=== PATIENT | female | born 1985 | race Caucasian/White ===

== ENCOUNTER 2017-11-02 21:32 | Observation (INO) | payer BC ==
[2017-11-02] MEDS ORDERED: FENTANYL CITR 100 MCG/2 ML ONE (22:20)
[2017-11-02] MEDS ORDERED: ONDANSETRON 4 MG/2 ML VIAL ONE (22:20)
[2017-11-02 22:30] LABS: Absolute Lymphocytes (CBC) 3.2 K/uL (0.7-4.9); Absolute Monocytes 0.6 K/uL (0.1-1.3); Absolute Neutrophil 7.1 K/uL (1.8-8.0); Basophils % 0.8 % (0-1.3); Hematocrit 41.5 % (36.0-45.0); Lymphocytes % 28.9 % (15.3-44.8); MPV 9.3 fL (7.6-11.3); Monocytes % 5.8 % (3.3-12.3); RBC Red Blood Cell Count 4.51 M/uL (3.86-4.86)
[2017-11-02 22:53] LABS: ALT/SGPT 33 U/L (12-78); AST/SGOT 24 U/L (15-37); Albumin 2.9 g/dL (3.4-5.0); Alkaline Phosphatase 123 U/L (45-117); BUN Blood Urea Nitrogen 9 mg/dL (7-18); Bicarbonate 27 mmol/L (21-32); Bilirubin Direct < 0.1 mg/dL (0-0.2); Bilirubin Total 0.3 mg/dL (0.2-1.0); Glucose Level 87 mg/dL (74-106); Lipase 83 U/L (73-393); Potassium 3.9 mmol/L (3.5-5.1); Protein, Total 8.3 g/dL (6.4-8.2); Sodium Level 141 mmol/L (136-145)
[2017-11-02 23:25] LABS: Urine Blood 1+ (NEG); Urine Glucose NEGATIVE (NEG); Urine Protein NEGATIVE (NEG); Urine Specific Gravity 1.015 (1.005-1.030)
[2017-11-02 23:30] LABS: Urine Bacteria <20 /HPF (<20); Urine Culture Reflex Order NOT NEEDED; Urine RBC <5 /HPF (NONE SEEN)
[2017-11-02] MEDS ORDERED: PROMETHAZINE 25 MG/ML VIAL ONE (23:43)
[2017-11-02] MEDS ORDERED: MEPERIDINE HCL 25 MG/0.5 ML ONE (23:43)
--- NOTE | 2017-11-03 00:06 | EDPHYS ---
Physician Documentation [facility] Name: Sosa Kraus Age: 32 yrs Sex: Female : 1985 Arrival Date: 11/02/2017 Time: 21:35 Bed 23 Private MD: ED Physician Ronaldo Jordan HPI: 11/02 22:58 This 32 yrs old Female presents to ER via Ambulatory with complaints of jr8 Abdominal Pain. 22:58 The patient presents with abdominal pain right lower quadrant. Onset: The jr8 symptoms/episode began/occurred acutely, today. The symptoms do not radiate. Associated signs and symptoms: Pertinent positives: nausea and vomiting. The symptoms are described as sharp, stabbing. Severity of pain: At its worst the pain was moderate in the emergency department the pain is unchanged. The patient has not experienced similar symptoms in the past. The patient has not recently seen a physician. 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 - Social history:: Smoking status: Patient/guardian denies using tobacco. - Ebola Screening: : Patient denies travel to an Ebola-affected area in the 21 days before illness onset. ROS: 22:58 Eyes: Negative for injury, pain, redness, and discharge, ENT: Negative for injury, jr8 pain, and discharge, Neck: Negative for injury, pain, and swelling, Cardiovascular: Negative for chest pain, palpitations, and edema, Respiratory: Negative for shortness of breath, cough, wheezing, and pleuritic chest pain, MS/Extremity: Negative for injury and deformity, Skin: Negative for injury, rash, and discoloration, Neuro: Negative for headache, weakness, numbness, tingling, and seizure. 22:58 Abdomen/GI: Positive for abdominal pain, nausea and vomiting, Negative for diarrhea, constipation, abdominal cramps, abdominal distension, anorexia, dysphagia, hematemesis, black/tarry stool, rectal pain, rectal bleeding, bowel incontinence, flatulence. 22:58 Back: Positive for flank pain, on the right. Exam: 22:58 Eyes: Pupils equal round and reactive to light, extra-ocular motions intact. Lids and jr8 lashes normal. Conjunctiva and sclera are non-icteric and not injected. Cornea within normal limits. Periorbital areas with no swelling, redness, or edema. ENT: Nares patent. No nasal discharge, no septal abnormalities noted. Tympanic membranes are normal and external auditory canals are clear. Oropharynx with no redness, swelling, or masses, exudates, or evidence of obstruction, uvula midline. Mucous membranes moist. Neck: Trachea midline, no thyromegaly or masses palpated, and no cervical lymphadenopathy. Supple, full range of motion without nuchal rigidity, or vertebral point tenderness. No Meningismus. Cardiovascular: Regular rate and rhythm with a normal S1 and S2. No gallops, murmurs, or rubs. Normal PMI, no JVD. No pulse deficits. Respiratory: Lungs have equal breath sounds bilaterally, clear to auscultation and percussion. No rales, rhonchi or wheezes noted. No increased work of breathing, no retractions or nasal flaring. Skin: Warm, dry with normal turgor. Normal color with no rashes, no lesions, and no evidence of cellulitis. MS/ Extremity: Pulses equal, no cyanosis. Neurovascular intact. Full, normal range of motion. Neuro: Awake and alert, GCS 15, oriented to person, place, time, and situation. Cranial nerves II-XII grossly intact. Motor strength 5/5 in all extremities. Sensory grossly intact. Cerebellar exam normal. Normal gait. 22:58 Abdomen/GI: Inspection: obese Bowel sounds: active, all quadrants, Palpation: soft, in all quadrants, moderate abdominal tenderness, in the anterior aspect of right lateral abdomen and right lower quadrant, Indicators: McBurney's point is not tender, Bee's sign is negative, Rovsing's sign is negative, Liver: no appreciated palpable abnormalities, Hernia: not appreciated. 22:58 Back: pain, that is moderate, of the right flank, ROM is normal, normal spinal alignment noted, CVA tenderness, that is mild, is noted on the right. Vital Signs: 21:49 BP 116 / 83; Pulse 95; Resp 20; Temp 97.8(TE); Pulse Ox 98% ; Weight 113.4 kg (R); aj1 Height 5 ft. 6 in. (167.64 cm) (R); Pain 10/10; 23:38 BP 110 / 70; Pulse 79; Resp 17; Pulse Ox 98% on R/A; kr2 11/03 00:50 BP 117 / 74; Pulse 74; Resp 17; Pulse Ox 98% on R/A; kr2 11/02 21:49 Body Mass Index 40.35 (113.40 kg, 167.64 cm) aj1 MDM: 11/02 21:59 Patient medically screened. [facility] 11/03 00:04 Data reviewed: vital signs, nurses notes, lab test result(s), radiologic studies, CT jr8 scan, and as a result, I will admit patient. Data interpreted: Pulse oximetry: on room air is 98 %. Interpretation: normal. Counseling: I had a detailed discussion with the patient and/or guardian regarding: the historical points, exam findings, and any diagnostic results supporting the discharge/admit diagnosis, lab results, radiology results, the need for further work-up and treatment in the hospital. 11/02 21:59 Order name: Basic Metabolic Panel 11/02 21:59 Order name: CBC with Diff [facility] 11/02 21:59 Order name: Creatinine for Radiology; Complete Time: 22:57 [facility] 11/02 21:59 Order name: Hepatic Function; Complete Time: 22:57 [facility] 11/02 21:59 Order name: Lipase; Complete Time: 22:57 [facility] 11/02 22:00 Order name: Basic Metabolic Panel; Complete Time: 22:57 [facility] 11/02 22:00 Order name: CBC with Automated Diff; Complete Time: 22:41 [facility] 11/02 22:26 Order name: Urine Dipstick--Ancillary (enter results); Complete Time: 23:30 [facility] 11/02 22:26 Order name: Urine --Ancillary (enter results); Complete Time: 23:30 [facility] 11/02 22:42 Order name: Urine Microscopic Only; Complete Time: 23:32 [facility] 11/02 22:42 Order name: CT Stone Protocol [facility] 11/02 21:59 Order name: Urine Test (obtain specimen); Complete Time: 22:26 [facility] 11/02 21:59 Order name: IV Saline Lock; Complete Time: 22:13 11/02 21:59 Order name: Labs collected and sent; Complete Time: 22:13 11/02 21:59 Order name: Urine Dipstick-Ancillary (obtain specimen); Complete Time: 22:26 11/03 00:06 Order name: NPO; Complete Time: 00:11 Administered Medications: 11/02 22:25 Drug: fentaNYL (PF) 75 mcg Route: IVP; Site: right upper arm; kr2 22:40 Follow up: Response: No adverse reaction; Pain is decreased kr2 22:25 Drug: Zofran 4 mg Route: IVP; Site: right upper arm; kr2 22:40 Follow up: Response: No adverse reaction kr2 11/03 00:05 Drug: Phenergan 12.5 mg Route: IVP; Site: right upper arm; kr2 00:15 Follow up: Response: No adverse reaction kr2 00:05 Drug: Demerol 25 mg Route: IVP; Site: right upper arm; kr2 00:14 Follow up: Response: No adverse reaction; Pain is decreased kr2 00:11 Drug: Mefoxin 1 grams Route: IVPB; Infused Over: 30 mins; Site: right upper arm; kr2 00:54 Follow up: Response: No adverse reaction; IV Status: Completed infusion kr2 00:16 Drug: Flagyl 500 mg Volume: 100 ml; Route: IVPB; Rate: 200 ml/hr; Infused Over: 30 kr2 mins; Site: right upper arm; 00:54 Follow up: Response: No adverse reaction; IV Status: Completed infusion kr2 Disposition: 09:31 Co-signature as Attending Physician, Ronaldo Jordan MD I agree with the assessment and [facility] plan of care. Disposition: 11/03/17 00:05 Hospitalization ordered by Johny Thurston for Inpatient Admission. Preliminary diagnosis is Acute appendicitis with localized peritonitis. - Bed requested for Telemetry/MedSurg (Inpatient). - Status is Inpatient Admission. kr2 - Condition is Stable. - Problem is new. - Symptoms have improved. UTI on Admission? No Signatures: Dispatcher [employer] EDMS Uma León RN RN aj1 Ronaldo Jordan MD MD cha Roszak, Josh, PA PA jr8 Jojo Ward RN RN Roxana Breen RN RN kr2 Corrections: (The following items were deleted from the chart) 00:09 00:05 Hospitalization Ordered by Johny Thurston MD for Inpatient Admission. Preliminary cg diagnosis is Acute appendicitis with localized peritonitis. Bed requested for Telemetry/MedSurg (Inpatient). Status is Inpatient Admission. Condition is Stable. Problem is new. Symptoms have improved. UTI on Admission? No. jr8 00:55 00:09 11/03/2017 00:05 Hospitalization Ordered by Johny Thurston MD for Inpatient kr2 Admission. Preliminary diagnosis is Acute appendicitis with localized peritonitis. Bed requested for Telemetry/MedSurg (Inpatient). Status is Inpatient Admission. Condition is Stable. Problem is new. Symptoms have improved. UTI on Admission? No. cg
--- NOTE | 2017-11-03 00:06 | ER ---
Nurse's Notes [facility] Name: Sosa Kraus Age: 32 yrs Sex: Female : 1985 Arrival Date: 11/02/2017 Time: 21:35 Bed 23 Private MD: Diagnosis: Acute appendicitis with localized peritonitis Presentation: 11/02 21:46 Presenting complaint: Patient states: abdominal pain to the umbilical area that aj1 radiates to the right lower quadrant since 0400 this morning. Patient also report chills, nausea. Denies vomiting, diarrhea. Transition of care: patient was not received from another setting of care. Onset of symptoms was November 02, 2017 at 04:00. Risk Assessment: Do you want to hurt yourself or someone else? Patient reports no desire to harm self or others. Initial Sepsis Screen: Does the patient meet any 2 criteria? Systolic BP < 90 mmHg. No. Patient's initial sepsis screen is negative. Does the patient have a suspected source of infection? Yes: Acute abdominal pain. Care prior to arrival: None. 21:46 Method Of Arrival: Ambulatory aj1 21:46 Acuity: DOMINGO 3 aj1 Triage Assessment: 21:49 General: Appears in no apparent distress. uncomfortable, Behavior is calm, cooperative, aj1 appropriate for age. Pain: Complains of pain in umbilical area Pain radiates to right lower quadrant Pain currently is 10 out of 10 on a pain scale. Quality of pain is described as sharp, shooting, Pain began 0400. Neuro: Level of Consciousness is awake, alert, obeys commands, Speech is normal. Cardiovascular: Patient's skin is warm and dry. Respiratory: Airway is patent Respiratory effort is even, unlabored, Respiratory pattern is regular, symmetrical. GI: Abdomen is non-distended, Reports upper abdominal pain, nausea, Patient currently denies diarrhea, vomiting. 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 - Social history:: Smoking status: Patient/guardian denies using tobacco. - Ebola Screening: : Patient denies travel to an Ebola-affected area in the 21 days before illness onset. Screenin:01 Abuse screen: Denies threats or abuse. Denies injuries from another. Nutritional kr2 screening: No deficits noted. Tuberculosis screening: No symptoms or risk factors identified. Fall Risk None identified. Assessment: 21:58 General: Appears in no apparent distress. uncomfortable, obese, well groomed, well kr2 developed, Behavior is calm, cooperative, appropriate for age. Pain: Complains of pain in umbilical area Pain radiates to right lower quadrant Pain currently is 10 out of 10 on a pain scale. Quality of pain is described as sharp, shooting, stabbing, squeezing, Is continuous, Alleviated by rest, repositioning, Aggravated by increased activity, laying down. Neuro: Level of Consciousness is awake, alert, obeys commands, Oriented to person, place, time, situation, Appropriate for age. Cardiovascular: Capillary refill < 3 seconds in bilateral fingers Patient's skin is warm and dry. Respiratory: Airway is patent Respiratory effort is even, unlabored, Respiratory pattern is regular, symmetrical. GI: Bowel sounds present X 4 quads. Abd is soft X 4 quads Abdomen is tender to palpation in umbilical area and right lower quadrant Guarding noted in right lower quadrant Reports nausea. : Denies burning with urination. EENT: Oral mucosa is moist. Derm: Skin is intact, is healthy with good turgor, Skin is pink, warm \T\ dry. Musculoskeletal: Circulation, motion, and sensation intact. 23:37 Reassessment: Patient appears in no apparent distress at this time. Patient and/or kr2 family updated on plan of care and expected duration. Pain level reassessed. Patient is alert, oriented x 3, equal unlabored respirations, skin warm/dry/pink. Patient states feeling better. Patient states symptoms have improved. 23:48 Reassessment: Patient appears in no apparent distress at this time. Patient and/or kr2 family updated on plan of care and expected duration. Pain level reassessed. Patient is alert, oriented x 3, equal unlabored respirations, skin warm/dry/pink. Patient reports pain is starting to return. Isabella notified. Medicated patient as ordered, see JUN. Vital Signs: 21:49 BP 116 / 83; Pulse 95; Resp 20; Temp 97.8(TE); Pulse Ox 98% ; Weight 113.4 kg (R); aj1 Height 5 ft. 6 in. (167.64 cm) (R); Pain 10/10; 23:38 BP 110 / 70; Pulse 79; Resp 17; Pulse Ox 98% on R/A; kr2 07 00:50 BP 117 / 74; Pulse 74; Resp 17; Pulse Ox 98% on R/A; kr2 11/02 21:49 Body Mass Index 40.35 (113.40 kg, 167.64 cm) aj1 ED Course: 11/02 21:35 Patient arrived in ED. al2 21:49 Triage completed. aj1 21:49 Arm band placed on Patient placed in an exam room. aj1 21:53 Roxana Breen, SULMA is Primary Nurse. kr2 21:59 Carlin Kitchen PA is PHCP. jr8 21:59 Ronaldo Jordan MD is Attending Physician. jr8 22:01 Patient has correct armband on for positive identification. Bed in low position. Call kr2 light in reach. Side rails up X 1. Adult w/ patient. Pulse ox on. NIBP on. Door closed. Verbal reassurance given. Head of bed elevated. 22:10 Initial lab(s) drawn, by me, sent to lab. Inserted saline lock: 22 gauge in right upper kr2 arm, using aseptic technique. 22:15 Urine collected: clean catch specimen, clear. kr2 23:10 CT completed. Patient tolerated procedure well. Patient moved back from CT. bq 23:12 CT Stone Protocol In Process Unspecified. EDMS 11/03 00:04 Johny Thurston MD is Hospitalizing Provider. jr8 00:41 No provider procedures requiring assistance completed. Patient admitted, IV remains in kr2 place. Administered Medications: 11/02 22:25 Drug: fentaNYL (PF) 75 mcg Route: IVP; Site: right upper arm; kr2 22:40 Follow up: Response: No adverse reaction; Pain is decreased kr2 22:25 Drug: Zofran 4 mg Route: IVP; Site: right upper arm; kr2 22:40 Follow up: Response: No adverse reaction kr2 11/03 00:05 Drug: Phenergan 12.5 mg Route: IVP; Site: right upper arm; kr2 00:15 Follow up: Response: No adverse reaction kr2 00:05 Drug: Demerol 25 mg Route: IVP; Site: right upper arm; kr2 00:14 Follow up: Response: No adverse reaction; Pain is decreased kr2 00:11 Drug: Mefoxin 1 grams Route: IVPB; Infused Over: 30 mins; Site: right upper arm; kr2 00:54 Follow up: Response: No adverse reaction; IV Status: Completed infusion kr2 00:16 Drug: Flagyl 500 mg Volume: 100 ml; Route: IVPB; Rate: 200 ml/hr; Infused Over: 30 kr2 mins; Site: right upper arm; 00:54 Follow up: Response: No adverse reaction; IV Status: Completed infusion kr2 Outcome: 00:05 Decision to Hospitalize by Provider. jr8 00:41 Admitted to Med/surg accompanied by nurse, family with patient, via wheelchair, room kr2 208, with chart, Report called to [place] 00:41 Condition: stable 00:41 Instructed on the need for admit, Demonstrated understanding of instructions. 00:55 Patient left the ED. kr2 Signatures: Dispatcher [employer] EDUma Whiteside, RN RN aj1 Alyse Sutton Josh, PA PA jr8 Roxana Breen RN RN kr2 Tiffany Goff
[2017-11-03] MEDS ORDERED: CEFOXITIN/SWI 1gm 1 GM/10 ML SYR ONE (00:07)
[2017-11-03] MEDS ORDERED: METRONIDAZOLE 500mg IVPB 500 MG/100 ML BAG IV ONE (00:15)
[2017-11-03] MEDS ORDERED: PROMETHAZINE 25 MG/ML VIAL IV PRN (00:50)
[2017-11-03] MEDS ORDERED: MEPERIDINE HCL 50 MG/ML AMP IV PRN (00:50)
[2017-11-03] MEDS ORDERED: ONDANSETRON 4 MG/2 ML VIAL IV PRN (00:50)
[2017-11-03 01:06] VITALS: BMI 42.7
[2017-11-03] MEDS: D5 0.45 NS 1,000 ML IV SCH ×5 (01:09→23:46)
--- NOTE | 2017-11-03 07:53 | RAD REPORT ---
EXAM DESCRIPTION: CT - Stone Protocol - 11/03/2017 2:50 am CLINICAL HISTORY: Abdominal pain. Right lower quadrant pain since this morning. Nausea COMPARISON: None. TECHNIQUE: Computed axial tomography of the abdomen pelvis was obtained without oral or IV contrast. Lack of IV and oral contrast limits evaluation of solid organs, bowel, and vessels. Coronal reformat rolo images were obtained and reviewed. A preliminary report was generated by [facility] and reviewed prior to this dictation All CT scans are performed using dose optimization technique as appropriate and may include automated exposure control or mA/KV adjustment according to patient size. FINDINGS: A right renal calculus is not seen. A 1 millimeter left renal calculus is present. Hydrone phrosis is not noted. An ureteral calculus is not noted. A bladder calculus is not present. Gallstones are present. The gallbladder wall is not thickened. Liver has a diminished attenuation consistent with fatty infiltration Spleen, pancreas and adrenals appear grossly normal. A tiny umbilical hernia is seen There is no evidence of diverticulitis. The appendix is dilated with moderate stranding within the ad jacent fat. Extends superiorly from the cecum. An abscess is not noted. Free air is not visualized. IMPRESSION: Appendicitis Cholelithiasis without evidence cholecystitis Tiny nonobstructing left renal calculus
[2017-11-03] MEDS ORDERED: Ringers Lactate 1,000 ML IV ONE (10:40)
[2017-11-03] MEDS ORDERED: GLYCOPYRROLATE 0.2 MG/ML SYR ONE ×2 (12:16→12:17)
[2017-11-03] MEDS ORDERED: PROPOFOL 200 MG/20 ML VIAL IV ONE (12:16)
[2017-11-03] MEDS ORDERED: MIDAZOLAM HCL 2 MG/2 ML INJ ONE ×2 (12:16→14:14)
[2017-11-03] MEDS ORDERED: LIDOCAINE 2% MPF 5 ML VIAL ONE (12:17)
[2017-11-03] MEDS ORDERED: ROCURONIUM 50 MG/5 ML VIAL IV ONE (12:19)
[2017-11-03] MEDS ORDERED: ONDANSETRON 4 MG/2 ML VIAL ONE (12:19)
[2017-11-03] MEDS ORDERED: FENTANYL CITR 250 MCG/5 ML ONE (12:20)
[2017-11-03] MEDS ORDERED: ONDANSETRON HCL 40 MG/20 ML VIAL ONE (12:21)
[2017-11-03] MEDS ORDERED: NEOSTIGMINE 1 MG/ML -5 ML SYRINGE ONE (12:21)
--- NOTE | 2017-11-03 12:59 | P.HP ---
Date of Service: 11/03/17 PC: This 32-year-old female presents emergency room with severe right lower quadrant abdominal pain for diagnosis and treatment. HPC: Patient has been experiencing abdominal pain since yesterday. Action began our left side, then was all across her abdomen, but is now localized to the right lower quadrant. Hurts whenever she tries to move, or coughs PMH: Negative PSHx: Previous C-sections SOC: Allergic to amoxicillin SYS REVIEW: No cough, wheeze, shortness of breath. No chest pain or palpitations. No urinary complaints O/E awake alert stable HEENT: Not jaundiced Chest: Chest movement equal bilaterally ABD: Tender with guarding in the right lower quadrant with guarding LOCO: Intact DATA: Elevated white cell count, CT scan demonstrates findings consistent with physical exam of acute abdomen with appendicitis IMPRESSION: Acute abdomen with appendicitis PLAN: I will take her to the operating room for laparoscopic possible open appendectomy. The risks of this procedure have been discussed. The possibility of bleeding, infection, injury to bowel blood vessels and surrounding structures were explained. Abscess formation and need for further surgeries and procedures was described. She understands and wants to proceed.
--- NOTE | 2017-11-03 13:01 | P.PN ---
Date of Service: 11/03/17 S: Patient is awake alert up ambulating, good effort on incentive spirometry. States he feels much better than yesterday but still very sore. O: Vital signs remain stable A: Patient doing well status post laparoscopic appendectomy. Will keep for 1 more day of IV antibiotics. P: Anticipate discharge in a.m..
--- NOTE | 2017-11-03 14:21 | P.OP ---
Preoperative diagnosis: Acute abdomen with appendicitis Postoperative diagnosis: Acute appendicitis Primary procedure: Laparoscopic appendectomy Anesthesia: General Estimated blood loss: Less than 10 cc Specimen: Appendix and Operative Technique: The patient was brought to the operating room, placed supine on the table. After the induction of adequate general endotracheal anesthesia, the area of the abdomen was prepped with a DuraPrep solution, and she was draped in the usual aseptic manner. A subumbilical incision was made. This was brought down through the skin and subcutaneous tissue. The Visiport was cavity and created pneumoperitoneum to approximately 12 mm of mercury. Under direct vision a 5 mm trocar was placed in the lower midline and another 5 mm in the right upper quadrant. The patient was then positioned in Trendelenburg and rolled to the left side. We were able to visualize right lower quadrant. . The appendix was then gently dissected from the surrounding structures. The junction of the appendix with the with the cecum was identified. An opening was made in the mesentery of the appendix. The 10 mm trocar was now converted to a 12 with the camera moved to the right upper port with a 5 mm view. The linear Stapler was introduced into the peritoneal cavity. It was placed across the base of the appendix and fired. A vascular reload was then placed into the Stapler. The mesentery of the appendix was then taken down. The appendix having been was placed into an Endo-Catch, brought out through the umbilical port site. Attention was turned back towards the right lower quadrant. The area was gently irrigated with the saline solution. The effluent was aspirated. 0.25% Marcaine was aerosolize into the right lower quadrant. Attention was turned towards the umbilical trocar. Using the endo-close absorbable sutures were placed to close the defect. The patient was now returned to the neutral position on the OR table. The pneumoperitoneum was collapsed, the umbilical sutures tied, and jarocho applied to the skin. At the end of the procedure the patient was in stable condition and sent to the recovery room. Needle sponge and instrument count were correct. 1 specimen was sent for histopathology. Sterile dressings had been applied. Complications: None Transferred to: Recovery Room Condition: Good
[2017-11-03] MEDS ORDERED: MORPHINE 4 MG/ML SYR IV PRN (14:28)
[2017-11-03] MEDS: MEPERIDINE HCL 50 MG/ML AMP ONE ×3 (14:35→14:46)
[2017-11-03] MEDS ORDERED: Levofloxacin500mg IV 500 MG/100 ML BAG IV SCH (15:00)
[2017-11-03] MEDS: HYDROCODONE/APAP 7.5/325 MG TAB PO PRN ×2 (17:25→21:57)
[2017-11-04] MEDS: HYDROCODONE/APAP 7.5/325 MG TAB PO PRN ×2 (06:20→10:19)
[2017-11-04] MEDS: D5 0.45 NS 1,000 ML IV SCH (09:00)
[2017-11-04 10:07] VITALS: O2SAT 92
[2017-11-04 12:07] VITALS: BP 134/82; TEMP 98.4
== END 2017-11-04 12:14 | disposition home or self-care (01) ==
LOC: ER 21:32 → ERHOLD 11-03 00:18 → INTOOBSV 11-03 00:18 → 2ND 11-03 00:28
PROVIDERS: ADMIT Surgery; ATTEND Surgery
PROC: 0DTJ4ZZ Resection of Appendix, Percutaneous Endoscopic Approach (ICD-10-PCS; principal; 2017-11-03 13:45)
DX: K35.80 Unspecified acute appendicitis (principal); Z88.0 Allergy status to penicillin
CPT/HCPCS: 36415; 74176; 76377; 80048; 80076; 81003; 81015; 81025; 83690; 85025; 88304; 96365; 96368; 96375; 99285; G0378; J2175; J2250; J2405; J2550; J2710; J3010

== ENCOUNTER 2017-11-18 14:20 | Emergency (ER) | payer BC ==
[2017-11-18 16:23] LABS: Absolute Lymphocytes (CBC) 1.8 K/uL (0.7-4.9); Absolute Monocytes 0.7 K/uL (0.1-1.3); Basophils % 0.7 % (0-1.3); Eosinophils % 0.4 % (0-4.4); Hematocrit 41.9 % (36.0-45.0); MCH 30.9 pg (27.0-35.0); MCV 92.6 fL (80-100); MPV 9.1 fL (7.6-11.3); Monocytes % 5.1 % (3.3-12.3); RBC Red Blood Cell Count 4.52 M/uL (3.86-4.86)
[2017-11-18] MEDS ORDERED: LORazepam 2 MG/ML VIAL ONE ×2 (16:26→17:17)
[2017-11-18] MEDS ORDERED: KETOROLAC 30 MG/ML INJ ONE (16:27)
[2017-11-18] MEDS ORDERED: FENTANYL CITR 100 MCG/2 ML ONE (16:27)
[2017-11-18] MEDS ORDERED: NA CHLORIDE 0.9% 1,000 ML ONE (16:27)
[2017-11-18 16:43] LABS: ALT/SGPT 60 U/L (12-78); AST/SGOT 56 U/L (15-37); Albumin 3.2 g/dL (3.4-5.0); Alkaline Phosphatase 124 U/L (45-117); BUN Blood Urea Nitrogen 11 mg/dL (7-18); Bicarbonate 30 mmol/L (21-32); Bilirubin Total 0.3 mg/dL (0.2-1.0); Glucose Level 96 mg/dL (74-106); Potassium 3.8 mmol/L (3.5-5.1); Protein, Total 8.5 g/dL (6.4-8.2); Sodium Level 141 mmol/L (136-145)
[2017-11-18] MEDS ORDERED: ONDANSETRON 4 MG/2 ML VIAL ONE (16:57)
[2017-11-18 17:27] LABS: Urine Blood TRACE (NEG); Urine Glucose NEGATIVE (NEG); Urine Protein NEGATIVE (NEG); Urine Specific Gravity 1.015 (1.005-1.030)
--- NOTE | 2017-11-18 17:31 | RAD REPORT ---
EXAM DESCRIPTION: CT - Angio Aorta For Dissection - 11/18/2017 5:11 pm CLINICAL HISTORY: . Chest pain/abdominal pain which started today are COMPARISON: November 02, 2017 CT abdomen TECHNIQUE: Computed tomography angiography of the chest, abdomen pelvis were obtained. 100 cc Isovue 370 was administered intravenously. Coronal and sagittal reconstruction were performed. MIP 3D reconstruction was performed All CT scans are performed using dose optimization technique as appropriate and may include automated exposure control or mA/KV adjustment according to patient size. FINDINGS: The opacification of portions of the thoracic aorta are suboptimal. A gross dissection is not seen. A dissection involving the abdominal aorta is not visualized. An aortic aneurysm is not pre sent. The celiac, SMA and DAILY are patent . A lung consolidation is not present. A pericardial effusion is not seen. A pleural effusion is not n oted. Fatty infiltration liver is present. Gallstones are seen without gallbladder wall thickening. A tiny umbilical hernia is present. Spleen, pancreas adrenals kidneys demonstrate no significant abnormality. The appendix has been removed. There no evidence diverticulitis. No ascites is noted. A 3.3 centimeter left ovarian cyst is suspected without significant free-fluid Spondylosis involves L4-5. There appears to be mild central spinal stenosis IMPRESSION: No gross thoracic aortic dissection. Negative for an abdominal aortic dissection Cholelithiasis without cholecystitis 3.3 centimeter left ovarian cyst without significant free fluid
--- NOTE | 2017-11-18 18:00 | ER ---
Nurse's Notes [facility] Name: Sosa Kraus Age: 32 yrs Sex: Female : 1985 Arrival Date: 11/18/2017 Time: 14:23 Bed 18 Private MD: Cliff Garcia F Diagnosis: Pain in thoracic spine;Other ovarian cysts;Spondylolysis, lumbar region Presentation: 11/18 14:30 Presenting complaint: Patient states: Mid back pain that started this afternoon. aj Transition of care: patient was not received from another setting of care. Onset of symptoms was November 18, 2017. Risk Assessment: Do you want to hurt yourself or someone else? Patient reports no desire to harm self or others. Initial Sepsis Screen: Does the patient meet any 2 criteria? No. Patient's initial sepsis screen is negative. Does the patient have a suspected source of infection? No. Patient's initial sepsis screen is negative. Care prior to arrival: None. 14:30 Method Of Arrival: Ambulatory aj 14:30 Acuity: DOMINGO 4 aj Triage Assessment: 14:31 General: Appears in no apparent distress. comfortable, Behavior is calm, cooperative, aj appropriate for age. Pain: Complains of pain in left subscapular area and right subscapular area. Neuro: Level of Consciousness is awake, alert, obeys commands, Oriented to person, place, time, situation, Appropriate for age. Respiratory: Airway is patent Respiratory effort is even, unlabored, Respiratory pattern is regular, symmetrical. Derm: Skin is intact, is healthy with good turgor, Skin is pink, warm \T\ dry. normal. Musculoskeletal: Circulation, motion, and sensation intact. Reports pain in back. 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 - Social history:: Smoking status: Patient/guardian denies using tobacco. - Ebola Screening: : Patient negative for fever greater than or equal to 101.5 degrees Fahrenheit, and additional compatible Ebola Virus Disease symptoms Patient denies exposure to infectious person Patient denies travel to an Ebola-affected area in the 21 days before illness onset No symptoms or risks identified at this time. - Family history:: not pertinent. Screenin:43 Abuse screen: Denies threats or abuse. Nutritional screening: No deficits noted. mb3 Tuberculosis screening: No symptoms or risk factors identified. Fall Risk None identified. Assessment: 16:39 General: Appears in no apparent distress. comfortable, Behavior is calm, cooperative, mb3 appropriate for age. Pain: Complains of pain in lumbar area Pain radiates to abdomen. Neuro: No deficits noted. Neuro: Level of Consciousness is awake, alert, obeys commands, Oriented to person, place, time, situation, Appropriate for age. Cardiovascular: No deficits noted. Heart tones present Capillary refill < 3 seconds Patient's skin is warm and dry. Pulses are all present. Respiratory: No deficits noted. Airway is patent Respiratory effort is even, unlabored, Respiratory pattern is regular, symmetrical, Breath sounds are clear bilaterally. GI: No deficits noted. Abdomen is obese, Bowel sounds present X 4 quads. GI: Abd is soft and non tender. : No signs and/or symptoms were reported regarding the genitourinary system. EENT: No deficits noted. No signs and/or symptoms were reported regarding the EENT system. Derm: No deficits noted. No signs and/or symptoms reported regarding the dermatologic system. 17:41 Reassessment: Patient and/or family updated on plan of care and expected duration. Pain mb3 level reassessed. Patient is alert, oriented x 3, equal unlabored respirations, skin warm/dry/pink. Patient states feeling better. Patient states symptoms have improved. Vital Signs: 14:31 BP 140 / 79; Pulse 77; Resp 16; Temp 97.5; Pulse Ox 98% on R/A; Weight 117.93 kg; aj Height 5 ft. 6 in. (167.64 cm); 16:43 BP 121 / 74; Pulse 77; Resp 16; Pulse Ox 98% on R/A; mb3 17:40 BP 125 / 76; Pulse 83; Resp 16; Pulse Ox 95% on R/A; mb3 14:31 Body Mass Index 41.96 (117.93 kg, 167.64 cm) aj ED Course: 14:23 Patient arrived in ED. mr 14:23 Cliff Garcia MD is Private Physician. mr 14:31 Triage completed. aj 14:31 Arm band placed on right wrist. Patient placed in an exam room. aj 14:39 Chucho Rowe, SULMA is Primary Nurse. mb3 14:53 Ronaldo Jordan MD is Attending Physician. dwayne 16:04 Radiology exam delayed due to lab results not completed at this time. (BUN/Creatinine) test not completed at this time. 16:30 Inserted saline lock: 20 gauge in left antecubital area, using aseptic technique. Blood mb3 collected. Missed attempt(s): 22 gauge in right antecubital area. Bleeding controlled, band aid applied, catheter tip intact. 16:38 Patient has correct armband on for positive identification. Placed in gown. Bed in low mb3 position. Call light in reach. Pulse ox on. NIBP on. 16:[address] 17:11 CT completed. Patient tolerated procedure well. Patient moved back from CT. ms 17:11 CT Aorta for Dissection In Process Unspecified. EDMS 17:58 Cliff Garcia MD is Referral Physician. dwayne 18:31 No provider procedures requiring assistance completed. IV discontinued, intact, mb3 bleeding controlled, No redness/swelling at site. Pressure dressing applied. Administered Medications: 16:35 Drug: Ativan 1 mg Route: IVP; Site: left antecubital; mb3 18:12 Follow up: Response: No adverse reaction mb3 16:35 Drug: NS 0.9% 1000 ml Route: IV; Rate: 1 bolus; Site: left antecubital; mb3 18:24 Follow up: Response: No adverse reaction; IV Status: Completed infusion; IV Intake: mb3 1000ml 16:36 Drug: TORadol 30 mg Route: IVP; Site: left antecubital; mb3 18:11 Follow up: Response: No adverse reaction mb3 16:36 Drug: fentaNYL (PF) 25 mcg Route: IVP; Site: left antecubital; mb3 18:11 Follow up: Response: No adverse reaction mb3 16:57 Drug: Zofran 4 mg Route: IVP; Site: left antecubital; mb3 18:11 Follow up: Response: No adverse reaction mb3 16:57 Drug: Ativan 1 mg Route: IVP; Site: left antecubital; mb3 18:12 Follow up: Response: No adverse reaction mb3 Intake: 18:24 IV: 1000ml; Total: 1000ml. mb3 Outcome: 18:00 Discharge ordered by . dwayne 18:31 Discharged to home ambulatory, with family. mb3 18:31 Condition: stable 18:31 Discharge instructions given to patient, family, Instructed on discharge instructions, follow up and referral plans. no driving heavy equipment, medication usage, Demonstrated understanding of instructions, follow-up care, medications, Prescriptions given X 3. 18:32 Patient left the ED. mb3 Signatures: Dispatcher [employer] EDLinda Multani, RN RN Ronaldo Solomon MD MD cha Rivera, Maria mr Con, Astrid Bolden, Chucho Foster, RN RN mb3
--- NOTE | 2017-11-18 18:00 | EDPHYS ---
Physician Documentation [facility] Name: Sosa Kraus Age: 32 yrs Sex: Female : 1985 Arrival Date: 11/18/2017 Time: 14:23 Bed 18 Private MD: Cliff Garcia F ED Physician Ronaldo Jordan HPI: 11/18 15:40 This 32 yrs old Female presents to ER via Ambulatory with complaints of Back dwayne Pain. 15:40 The patient presents with pain that is acute, with no known mechanism of injury. The dwayne symptoms are located in the thoracic area. Onset: The symptoms/episode began/occurred just prior to arrival. The pain does not radiate. Associated signs and symptoms: Pertinent positives: pleurtic. The problem was sustained without known cause. Modifying factors: The patient symptoms are alleviated by remaining still, the patient symptoms are aggravated by coughing, movement, walking. Severity of symptoms: At their worst the symptoms were moderate, in the emergency department the symptoms are unchanged. The patient has not experienced similar symptoms in the past. 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 - Social history:: Smoking status: Patient/guardian denies using tobacco. - Ebola Screening: : Patient negative for fever greater than or equal to 101.5 degrees Fahrenheit, and additional compatible Ebola Virus Disease symptoms Patient denies exposure to infectious person Patient denies travel to an Ebola-affected area in the 21 days before illness onset No symptoms or risks identified at this time. - Family history:: not pertinent. ROS: 15:40 Constitutional: Negative for fever, chills, and weight loss, Eyes: Negative for injury, dwayne pain, redness, and discharge, ENT: Negative for injury, pain, and discharge, Neck: Negative for injury, pain, and swelling, Cardiovascular: Negative for chest pain, palpitations, and edema, Respiratory: Negative for shortness of breath, cough, wheezing, and pleuritic chest pain, Abdomen/GI: Negative for abdominal pain, nausea, vomiting, diarrhea, and constipation, : Negative for injury, bleeding, discharge, and swelling, MS/Extremity: Negative for injury and deformity, Skin: Negative for injury, rash, and discoloration, Neuro: Negative for headache, weakness, numbness, tingling, and seizure, Psych: Negative for depression, anxiety, suicide ideation, homicidal ideation, and hallucinations, Allergy/Immunology: Negative for hives, rash, and allergies, Endocrine: Negative for neck swelling, polydipsia, polyuria, polyphagia, and marked weight changes, Hematologic/Lymphatic: Negative for swollen nodes, abnormal bleeding, and unusual bruising. 15:40 Back: Positive for decreased range of motion, pain at rest, pain with movement. Exam: 15:40 Constitutional: This is a well developed, well nourished patient who is awake, alert, dwayne and in no acute distress. Head/Face: Normocephalic, atraumatic. Eyes: Pupils equal round and reactive to light, extra-ocular motions intact. Lids and lashes normal. Conjunctiva and sclera are non-icteric and not injected. Cornea within normal limits. Periorbital areas with no swelling, redness, or edema. ENT: Nares patent. No nasal discharge, no septal abnormalities noted. Tympanic membranes are normal and external auditory canals are clear. Oropharynx with no redness, swelling, or masses, exudates, or evidence of obstruction, uvula midline. Mucous membranes moist. Neck: Trachea midline, no thyromegaly or masses palpated, and no cervical lymphadenopathy. Supple, full range of motion without nuchal rigidity, or vertebral point tenderness. No Meningismus. Chest/axilla: Normal chest wall appearance and motion. Nontender with no deformity. No lesions are appreciated. Cardiovascular: Regular rate and rhythm with a normal S1 and S2. No gallops, murmurs, or rubs. Normal PMI, no JVD. No pulse deficits. Respiratory: Lungs have equal breath sounds bilaterally, clear to auscultation and percussion. No rales, rhonchi or wheezes noted. No increased work of breathing, no retractions or nasal flaring. Abdomen/GI: Soft, non-tender, with normal bowel sounds. No distension or tympany. No guarding or rebound. No evidence of tenderness throughout. Female : Normal external genitalia. Skin: Warm, dry with normal turgor. Normal color with no rashes, no lesions, and no evidence of cellulitis. MS/ Extremity: Pulses equal, no cyanosis. Neurovascular intact. Full, normal range of motion. Neuro: Awake and alert, GCS 15, oriented to person, place, time, and situation. Cranial nerves II-XII grossly intact. Motor strength 5/5 in all extremities. Sensory grossly intact. Cerebellar exam normal. Normal gait. Psych: Awake, alert, with orientation to person, place and time. Behavior, mood, and affect are within normal limits. 15:40 Back: ROM is painful, normal spinal alignment noted, CVA tenderness, is absent, muscle spasm, is not present. Vital Signs: 14:31 BP 140 / 79; Pulse 77; Resp 16; Temp 97.5; Pulse Ox 98% on R/A; Weight 117.93 kg; aj Height 5 ft. 6 in. (167.64 cm); 16:43 BP 121 / 74; Pulse 77; Resp 16; Pulse Ox 98% on R/A; mb3 17:40 BP 125 / 76; Pulse 83; Resp 16; Pulse Ox 95% on R/A; mb3 14:31 Body Mass Index 41.96 (117.93 kg, 167.64 cm) aj MDM: 14:55 Patient medically screened. [facility] 15:42 Data reviewed: vital signs, nurses notes, lab test result(s), radiologic studies, CT dwayne scan. 11/18 15:40 Order name: CBC with Diff; Complete Time: 17:53 [facility] 11/18 15:40 Order name: Comprehensive Metabolic Panel; Complete Time: 17:53 [facility] 11/18 15:40 Order name: CT Aorta for Dissection; Complete Time: 17:53 [facility] 11/18 16:06 Order name: Lipase; Complete Time: 17:53 [facility] 11/18 16:51 Order name: Urine Dipstick--Ancillary (enter results); Complete Time: 17:53 11/18 16:51 Order name: Urine --Ancillary (enter results); Complete Time: 17:53 11/18 15:40 Order name: Urine Dipstick-Ancillary (obtain specimen); Complete Time: 16:36 [facility] 11/18 15:40 Order name: Urine Test (obtain specimen); Complete Time: 16:36 [facility] Administered Medications: 16:35 Drug: Ativan 1 mg Route: IVP; Site: left antecubital; mb3 18:12 Follow up: Response: No adverse reaction mb3 16:35 Drug: NS 0.9% 1000 ml Route: IV; Rate: 1 bolus; Site: left antecubital; mb3 18:24 Follow up: Response: No adverse reaction; IV Status: Completed infusion; IV Intake: mb3 1000ml 16:36 Drug: TORadol 30 mg Route: IVP; Site: left antecubital; mb3 18:11 Follow up: Response: No adverse reaction mb3 16:36 Drug: fentaNYL (PF) 25 mcg Route: IVP; Site: left antecubital; mb3 18:11 Follow up: Response: No adverse reaction mb3 16:57 Drug: Zofran 4 mg Route: IVP; Site: left antecubital; mb3 18:11 Follow up: Response: No adverse reaction mb3 16:57 Drug: Ativan 1 mg Route: IVP; Site: left antecubital; mb3 18:12 Follow up: Response: No adverse reaction mb3 Disposition: 11/18/17 18:00 Discharged to Home. Impression: Pain in thoracic spine, Other ovarian cysts, Spondylolysis, lumbar region. - Condition is Stable. - Discharge Instructions: Back Pain, Adult, Chronic Back Pain, Musculoskeletal Pain, Ovarian Cyst, Thoracic Strain, Cholelithiasis, Cholelithiasis, [id number], Thoracic Strain, Jaez-et-Clhx, Ovarian Cyst, Eose-wy-Hpdv, Back Pain, Adult, Llbo-ri-Dscv. - Prescriptions for Ibuprofen 600 mg Oral Tablet - take 1 tablet by ORAL route every 8 hours As needed take with food; 21 tablet. Robaxin 500 mg Oral Tablet - take 2 tablet by ORAL route every 6 hours As needed; 40 tablet. Tylenol- Codeine #3 300-30 mg Oral Tablet - take 2 tablet by ORAL route every 6 hours As needed; 30 tablet. - Medication Reconciliation Form, Thank You Letter, Antibiotic Education, Prescription Opioid Use form. - Follow up: Cliff Garcia; When: 2 - 3 days; Reason: Recheck today's complaints, Continuance of care, Re-evaluation by your physician. - Problem is new. - Symptoms have improved. Signatures: Dispatcher [employer] EDMS De La Torre, Linda, RN RN aj Julian, Ronaldo, MD MD dwayne Rowe, Chucho, RN RN mb3 Corrections: (The following items were deleted from the chart) 18:32 18:00 11/18/2017 18:00 Discharged to Home. Impression: Pain in thoracic spine; Other mb3 ovarian cysts; Spondylolysis, lumbar region. Condition is Stable. Discharge Instructions: Back Pain, Adult, Chronic Back Pain, Musculoskeletal Pain, Thoracic Strain, Thoracic Strain, Frkr-xk-Mpsk, Back Pain, Adult, Uvum-yb-Stpd. Prescriptions for Ibuprofen 600 mg Oral Tablet - take 1 tablet by ORAL route every 8 hours As needed take with food; 21 tablet, Robaxin 500 mg Oral Tablet - take 2 tablet by ORAL route every 6 hours As needed; 40 tablet, Tylenol-Codeine #3 300-30 mg Oral Tablet - take 2 tablet by ORAL route every 6 hours As needed; 30 tablet. and Forms are Medication Reconciliation Form, Thank You Letter, Antibiotic Education, Prescription Opioid Use. Follow up: Cliff Garcia; When: 2 - 3 days; Reason: Recheck today's complaints, Continuance of care, Re-evaluation by your physician. Problem is new. Symptoms have improved. dwayne
[2017-11-18 18:40] VITALS: TEMP 97.5
[2017-11-18 18:42] VITALS: BP 125/76; O2SAT 95
== END 2017-11-18 18:32 | disposition home or self-care (01) ==
LOC: ER 14:20
DX: M47.896 Other spondylosis, lumbar region (principal); N83.299 Other ovarian cyst, unspecified side; Z88.1 Allergy status to other antibiotic agents
CPT/HCPCS: 36415; 71275; 74175; 80053; 81003; 81025; 83690; 85025; 96361; 96374; 96375; 99284; J2405; J3010; J7030; Q9967

== ENCOUNTER 2018-01-29 16:31 | Emergency (ER) | payer BC ==
--- NOTE | 2018-01-29 17:40 | ER ---
Nurse's Notes [facility] Name: Sosa Kraus Age: 32 yrs Sex: Female : 1985 Arrival Date: 01/29/2018 Time: 16:34 Bed 7 Private MD: Cliff Garcia F Diagnosis: Acute sinusitis;Acute pharyngitis Presentation: 01/29 16:56 Presenting complaint: Patient states: "I have been to the doctor twice this week for aj this. He diagnosed me with a sinus infection the first time and today he swabbed me for the flu but it won't be back until Friday. I have 2 kids, I can't wait until Friday." Patient reports nasal congestion since Friday. Transition of care: patient was not received from another setting of care. Onset of symptoms was January 25, 2018. Risk Assessment: Do you want to hurt yourself or someone else? Patient reports no desire to harm self or others. Initial Sepsis Screen: Does the patient meet any 2 criteria? No. Patient's initial sepsis screen is negative. Does the patient have a suspected source of infection? No. Patient's initial sepsis screen is negative. Care prior to arrival: None. 16:56 Method Of Arrival: Ambulatory 16:56 Acuity: DOMINGO 4 aj Triage Assessment: 16:58 General: Appears in no apparent distress. comfortable, obese, Behavior is calm, aj cooperative, appropriate for age. Pain: Denies pain. EENT: Reports nasal congestion nasal discharge. Neuro: Level of Consciousness is awake, alert, obeys commands, Oriented to person, place, time, situation, Appropriate for age. Respiratory: Airway is patent Respiratory effort is even, unlabored, Respiratory pattern is regular, symmetrical. Derm: Skin is intact, is healthy with good turgor, Skin is pink, warm \\T\\ dry. normal. 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 - Social history:: Smoking status: Patient/guardian denies using tobacco. - Ebola Screening: : Patient negative for fever greater than or equal to 101.5 degrees Fahrenheit, and additional compatible Ebola Virus Disease symptoms Patient denies exposure to infectious person Patient denies travel to an Ebola-affected area in the 21 days before illness onset No symptoms or risks identified at this time. Screenin:37 Abuse screen: Denies threats or abuse. Denies injuries from another. Nutritional bp screening: No deficits noted. Tuberculosis screening: No symptoms or risk factors identified. Fall Risk None identified. Assessment: 17:36 General: Appears in no apparent distress. comfortable, obese, Behavior is calm, bp cooperative, appropriate for age. Pain: Complains of pain in head. Neuro: Level of Consciousness is awake, alert, obeys commands, Oriented to person, place, time, situation, Appropriate for age. Cardiovascular: No deficits noted. Respiratory: Airway is patent Respiratory effort is even, unlabored, Respiratory pattern is regular, symmetrical. GI: No signs and/or symptoms were reported involving the gastrointestinal system. : No signs and/or symptoms were reported regarding the genitourinary system. EENT: Reports nasal congestion. Derm: No deficits noted. Musculoskeletal: Circulation, motion, and sensation intact. Range of motion: intact in all extremities. 17:56 Reassessment: PT D/C HOME AMBULATORY, DX WITH ACUTE SINUSITIS AND PHARYNGITIS. bp Vital Signs: 16:58 BP 129 / 69; Pulse 112; Resp 20; Temp 97.9; Pulse Ox 99% on R/A; Weight 117.93 kg; aj Height 5 ft. 6 in. (167.64 cm); 16:58 Body Mass Index 41.96 (117.93 kg, 167.64 cm) aj ED Course: 16:34 Patient arrived in ED. mr 16:34 Cliff Garcia MD is Private Physician. mr 16:58 Triage completed. aj 16:58 Arm band placed on left wrist. Patient placed in an exam room. aj 17:30 Nona Anguiano FNP-C is PHCP. snw 17:30 Jimmie Coleman MD is Attending Physician. snw 17:33 Konstantin Granados, SULMA is Primary Nurse. bp 17:37 Patient has correct armband on for positive identification. Bed in low position. Call bp light in reach. Side rails up X2. 17:39 Cliff Garcia MD is Referral Physician. snw 17:56 No provider procedures requiring assistance completed. Patient did not have IV access bp during this emergency room visit. Administered Medications: 17:53 Drug: Decadron - Dexamethasone 10 mg {Note: GIVEN PO.} Route: IVP; Site: Other; bp 17:55 Follow up: Response: No adverse reaction bp 17:53 Drug: Tussionex Pennkinetic ER 5 ml Route: PO; bp 17:55 Follow up: Response: No adverse reaction; Medication administered at discharge. bp Outcome: 17:39 Discharge ordered by . snw 17:56 Discharged to home ambulatory. bp 17:56 Condition: stable 17:56 Discharge instructions given to patient, Instructed on discharge instructions, follow up and referral plans. medication usage, Demonstrated understanding of instructions, follow-up care, medications, Prescriptions given X 2. 17:57 Patient left the ED. bp Signatures: Linda De La Torre, RN RN Nona Dorman, ENMAC COOLING SYSTEM OPERATOR-Sierra Figueroa Brian, RN RN bp
--- NOTE | 2018-01-29 17:40 | EDPHYS ---
Physician Documentation [facility] Name: Sosa Kraus Age: 32 yrs Sex: Female : 1985 Arrival Date: 01/29/2018 Time: 16:34 Bed 7 Private MD: Cliff Garcia F ED Physician Jimmie Coleman HPI: 01/29 17:57 This 32 yrs old Female presents to ER via Ambulatory with complaints of Sinus snw Congestion. 17:57 The patient or guardian reports flu symptoms, arthralgias, low-grade fever, myalgias, snw no appetite. Onset: The symptoms/episode began/occurred 3 day(s) ago, and became persistent. Severity of symptoms: At their worst the symptoms were moderate. Associated signs and symptoms: Pertinent positives: fever, rhinorrhea, sore throat. It is unknown whether or not the patient has had similar symptoms in the past. The patient has been recently seen by a physician: the patient's primary care provider, strep negative, flu swab done but not resulted. PCP placed pt on Levaquin.. 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 - Social history:: Smoking status: Patient/guardian denies using tobacco. - Ebola Screening: : Patient negative for fever greater than or equal to 101.5 degrees Fahrenheit, and additional compatible Ebola Virus Disease symptoms Patient denies exposure to infectious person Patient denies travel to an Ebola-affected area in the 21 days before illness onset No symptoms or risks identified at this time. ROS: 17:56 Eyes: Negative for injury, pain, redness, and discharge. snw 17:56 Neck: Negative for injury, pain, and swelling, Cardiovascular: Negative for chest pain, palpitations, and edema, Respiratory: Negative for shortness of breath, cough, wheezing, and pleuritic chest pain, Abdomen/GI: Negative for abdominal pain, nausea, vomiting, diarrhea, and constipation, Back: Negative for injury and pain, : Negative for injury, bleeding, discharge, and swelling, MS/Extremity: Negative for injury and deformity, Skin: Negative for injury, rash, and discoloration, Neuro: Negative for headache, weakness, numbness, tingling, and seizure. 17:56 Constitutional: Positive for body aches, fatigue, fever, malaise, poor PO intake. 17:56 ENT: Positive for nasal discharge, sinus congestion, sinus pain, sore throat. Exam: 17:54 Head/Face: Normocephalic, atraumatic. Eyes: Pupils equal round and reactive to light, snw extra-ocular motions intact. Lids and lashes normal. Conjunctiva and sclera are non-icteric and not injected. Cornea within normal limits. Periorbital areas with no swelling, redness, or edema. 17:54 Neck: Trachea midline, no thyromegaly or masses palpated, and no cervical lymphadenopathy. Supple, full range of motion without nuchal rigidity, or vertebral point tenderness. No Meningismus. Chest/axilla: Normal chest wall appearance and motion. Nontender with no deformity. No lesions are appreciated. 17:54 Respiratory: Lungs have equal breath sounds bilaterally, clear to auscultation and percussion. No rales, rhonchi or wheezes noted. No increased work of breathing, no retractions or nasal flaring. Abdomen/GI: Soft, non-tender, with normal bowel sounds. No distension or tympany. No guarding or rebound. No evidence of tenderness throughout. Back: No spinal tenderness. No costovertebral tenderness. Full range of motion. Skin: Warm, dry with normal turgor. Normal color with no rashes, no lesions, and no evidence of cellulitis. MS/ Extremity: Pulses equal, no cyanosis. Neurovascular intact. Full, normal range of motion. Neuro: Awake and alert, GCS 15, oriented to person, place, time, and situation. Cranial nerves II-XII grossly intact. Motor strength 5/5 in all extremities. Sensory grossly intact. Cerebellar exam normal. Normal gait. Psych: Awake, alert, with orientation to person, place and time. Behavior, mood, and affect are within normal limits. 17:54 Constitutional: The patient appears alert, awake, uncomfortable. 17:54 ENT: TM's: are normal, Nose: Nasal mucosa: edematous, Mouth: is normal, Posterior pharynx: swelling, erythema, that is moderate, Voice: is normal. 17:54 Cardiovascular: Rate: tachycardic. Vital Signs: 16:58 BP 129 / 69; Pulse 112; Resp 20; Temp 97.9; Pulse Ox 99% on R/A; Weight 117.93 kg; aj Height 5 ft. 6 in. (167.64 cm); 16:58 Body Mass Index 41.96 (117.93 kg, 167.64 cm) aj MDM: 17:39 Patient medically screened. snw 17:55 Data reviewed: vital signs, nurses notes. Data interpreted: Pulse oximetry: on room air snw is 99 %. Interpretation: normal. Counseling: I had a detailed discussion with the patient and/or guardian regarding: the historical points, exam findings, and any diagnostic results supporting the discharge/admit diagnosis, lab results, the need for outpatient follow up, to return to the emergency department if symptoms worsen or persist or if there are any questions or concerns that arise at home. Special discussion: Based on the history and exam findings, there is no indication for further emergent testing or inpatient evaluation. I discussed with the patient/guardian the need to see the primary care provider for further evaluation of the symptoms. 01/29 16:56 Order name: Flu 01/29 16:56 Order name: Strep Administered Medications: 17:53 Drug: Decadron - Dexamethasone 10 mg {Note: GIVEN PO.} Route: IVP; Site: Other; bp 17:55 Follow up: Response: No adverse reaction bp 17:53 Drug: Tussionex Pennkinetic ER 5 ml Route: PO; bp 17:55 Follow up: Response: No adverse reaction; Medication administered at discharge. bp Disposition: 18:24 Co-signature as Attending Physician, Jimmie Coleman MD. rn Disposition: 01/29/18 17:39 Discharged to Home. Impression: Acute sinusitis, Acute pharyngitis. - Condition is Stable. - Discharge Instructions: Fever, Adult, Pharyngitis, Sinusitis, Adult, Rehydration, Adult. - Prescriptions for Prednisone 20 mg Oral Tablet - take 1 tablet by ORAL route every 12 hours for 5 days; 10 tablet. Tessalon Perles 100 mg Oral Capsule - take 1 capsule by ORAL route every 8 hours As needed; 15 capsule. - Work release form, Medication Reconciliation Form, Thank You Letter, Antibiotic Education, Prescription Opioid Use form. - Follow up: Cliff Garcia MD; When: 1 week; Reason: Recheck today's complaints, Continuance of care, Re-evaluation by your physician. Follow up: Emergency Department; When: As needed; Reason: Worsening of condition. Signatures: Dispatcher [employer] EDLinda Multani RN RN Nona Dorman, QUALITATIVE EXECUTIVE RESEARCHER-C QUALITATIVE EXECUTIVE RESEARCHER-Csnw Jimmie Coleman MD MD rn Peltier, Brian, RN RN bp Corrections: (The following items were deleted from the chart) 17:57 17:39 01/29/2018 17:39 Discharged to Home. Impression: Acute sinusitis; Acute bp pharyngitis. Condition is Stable. Forms are Medication Reconciliation Form, Thank You Letter, Antibiotic Education, Prescription Opioid Use. Follow up: Cliff Garcia; When: 1 week; Reason: Recheck today's complaints, Continuance of care, Re-evaluation by your physician. Follow up: Emergency Department; When: As needed; Reason: Worsening of condition. snw
[2018-01-29] MEDS ORDERED: DEXAMETHASONE 10 MG/ML VIAL ONE (17:57)
[2018-01-29] MEDS ORDERED: HYDROCODONE/CHLORPHEN 5 ML/OSYR ONE (17:57)
[2018-01-29 18:02] VITALS: BP 129/69; TEMP 97.9; O2SAT 99
== END 2018-01-29 17:57 | disposition home or self-care (01) ==
LOC: ER 16:31
DX: J01.90 Acute sinusitis, unspecified (principal); J02.9 Acute pharyngitis, unspecified; Z88.1 Allergy status to other antibiotic agents
CPT/HCPCS: 87070; 87081; 87804; 96374; 99283; J1100

== ENCOUNTER 2018-02-10 12:20 | Emergency (ER) | payer BC ==
[2018-02-10 13:19] LABS: Urine Amorphous Sediment 1+ /HPF (NONE SEEN); Urine Bacteria >50 /HPF (<20); Urine Culture Reflex Order REFLEXED; Urine Mucus 2+ /HPF (NONE SEEN); Urine RBC <5 /HPF (NONE SEEN)
[2018-02-10] MEDS ORDERED: ONDANSETRON 4 MG (ODT) TAB ONE (13:21)
--- NOTE | 2018-02-10 13:49 | EDPHYS ---
Physician Documentation [facility] Name: Sosa Kraus Age: 32 yrs Sex: Female : 1985 Arrival Date: 02/10/2018 Time: 12:22 Bed 7 Private MD: Cliff Garcia F ED Physician Jimmie Coleman HPI: 02/10 12:45 This 32 yrs old Female presents to ER via Ambulatory with complaints of cp Vomiting. 12:45 The patient presents to the emergency department with nausea, that is moderate, cp vomiting, 3 times today. Onset: The symptoms/episode began/occurred this morning. 12:45 Possible causes: ate eggs last night and patient reports similar symptoms in the past cp after eating eggs. 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 - Social history:: Smoking status: Patient/guardian denies using tobacco, Patient uses alcohol, but reports only rare drinking. - Ebola Screening: : Patient negative for fever greater than or equal to 101.5 degrees Fahrenheit, and additional compatible Ebola Virus Disease symptoms Patient denies exposure to infectious person Patient denies travel to an Ebola-affected area in the 21 days before illness onset No symptoms or risks identified at this time. ROS: 12:50 Constitutional: Negative for body aches, chills, fever, poor PO intake. cp 12:50 Eyes: Negative for injury, pain, redness, and discharge. cp Exam: 12:57 Constitutional: The patient appears in no acute distress, alert, awake, non-toxic, well cp developed, well nourished. 12:57 Head/Face: Normocephalic, atraumatic. cp 12:57 Eyes: Periorbital structures: appear normal, Conjunctiva: normal, no exudate, no injection, Sclera: no appreciated abnormality, Lids and lashes: appear normal, bilaterally. 12:57 ENT: External ear(s): are unremarkable, Nose: is normal, Mouth: is normal, Posterior pharynx: is normal, airway is patent, no erythema, no exudate. 12:57 Chest/axilla: Inspection: normal, Palpation: is normal, no crepitus, no tenderness. 12:57 Cardiovascular: Rate: normal, Rhythm: regular. 12:57 Respiratory: the patient does not display signs of respiratory distress, Respirations: normal, no use of accessory muscles, no retractions, no splinting, no tachypnea, labored breathing, is not present, Breath sounds: are clear throughout, no decreased breath sounds, no stridor, no wheezing. 12:57 Abdomen/GI: Inspection: abdomen appears normal, Bowel sounds: active, all quadrants, Palpation: soft, in all quadrants, mild abdominal tenderness, in the left upper quadrant, rebound tenderness, is not appreciated, involuntary guarding, is not appreciated. 12:57 Back: pain, is absent, ROM is normal. 12:57 Skin: cellulitis, is not appreciated, no rash present. 12:57 Neuro: Orientation: to person, place \T\ time. Mentation: is normal, Cerebellar function: is grossly normal, Motor: moves all fours, strength is normal, Sensation: no obvious gross deficits. Vital Signs: 12:37 BP 133 / 76; Pulse 74; Resp 16; Temp 98.3; Pulse Ox 99% on R/A; Pain 3/10; ch MDM: 12:33 Patient medically screened. dwayne 13:47 Data reviewed: vital signs, nurses notes, lab test result(s), and as a result, I will cp discharge patient. 02/10 13:07 Order name: Urine Microscopic Only; Complete Time: 13:45 EDMD 02/10 13:45 Interpretation: UWBC 5-10; UBACT >50; Reviewed. 02/10 13:08 Order name: Urine Culture EDMS 02/10 13:57 Order name: Urine Dipstick--Ancillary (enter results) 02/10 13:57 Order name: Urine --Ancillary (enter results) bd 02/10 12:41 Order name: Urine Dipstick-Ancillary (obtain specimen); Complete Time: 12:57 02/10 12:41 Order name: Urine Test (obtain specimen); Complete Time: 12:57 02/10 12:58 Order name: PO challenge; Complete Time: 13:59 cp Administered Medications: 13:18 Drug: Zofran 4 mg Route: PO; sv 13:59 Follow up: Response: No adverse reaction; Marked relief of symptoms sv Disposition: 18:55 Co-signature as Attending Physician, Jimmie Coleman MD. rn Disposition: 02/10/18 13:48 Discharged to Home. Impression: Nausea and vomiting, Urinary tract infection, site not specified. - Condition is Stable. - Discharge Instructions: Nausea and Vomiting, Adult, Urinary Tract Infection, Adult. - Prescriptions for Zofran 4 mg Oral Tablet - take 1 tablet by ORAL route every 12 hours As needed; 20 tablet. Bactrim DS 800- 160 mg Oral Tablet - take 1 tablet by ORAL route every 12 hours for 5 days; 10 tablet. - Work release form, Medication Reconciliation Form, Thank You Letter, Antibiotic Education, Prescription Opioid Use form. - Follow up: Private Physician; When: 2 - 3 days; Reason: symptoms continue. - Problem is new. - Symptoms have improved. Signatures: Dispatcher [employer] EDAnnamaria Pennington RN RN ch Verde, Stephanie, RN RN sv Anderson, Corey, MD MD cha Nieto, Roman, MD MD rn Page, Corey, PA PA cp Yaz Hui RN RN Corrections: (The following items were deleted from the chart) 13:59 13:48 02/10/2018 13:48 Discharged to Home. Impression: Nausea and vomiting; Urinary sv tract infection, site not specified. Condition is Stable. Forms are Medication Reconciliation Form, Thank You Letter, Antibiotic Education, Prescription Opioid Use. Follow up: Private Physician; When: 2 - 3 days; Reason: symptoms continue. Problem is new. Symptoms have improved. cp
--- NOTE | 2018-02-10 13:49 | ER ---
Nurse's Notes [facility] Name: Sosa Kraus Age: 32 yrs Sex: Female : 1985 Arrival Date: 02/10/2018 Time: 12:22 Bed 7 Private MD: Cliff Garcia F Diagnosis: Nausea and vomiting;Urinary tract infection, site not specified Presentation: 02/10 12:35 Presenting complaint: Patient states: vomiting x3 since 0200, cramping to the front of my stomach. I made something with eggs last night and sometimes they give me issues. Transition of care: patient was not received from another setting of care. Onset of symptoms was February 10, 2018 at 02:00. Risk Assessment: Do you want to hurt yourself or someone else? Patient reports no desire to harm self or others. Initial Sepsis Screen: Does the patient meet any 2 criteria? No. Patient's initial sepsis screen is negative. Does the patient have a suspected source of infection? No. Patient's initial sepsis screen is negative. Care prior to arrival: None. 12:35 Method Of Arrival: Ambulatory 12:35 Acuity: DOMINGO 3 Triage Assessment: 12:37 General: Appears in no apparent distress. comfortable, Behavior is calm, cooperative, ch appropriate for age. Pain: Complains of pain in abdomen. GI: Reports nausea, vomiting. 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 - Social history:: Smoking status: Patient/guardian denies using tobacco, Patient uses alcohol, but reports only rare drinking. - Ebola Screening: : Patient negative for fever greater than or equal to 101.5 degrees Fahrenheit, and additional compatible Ebola Virus Disease symptoms Patient denies exposure to infectious person Patient denies travel to an Ebola-affected area in the 21 days before illness onset No symptoms or risks identified at this time. Screenin:15 Abuse screen: Denies threats or abuse. Denies injuries from another. Nutritional sv screening: No deficits noted. Tuberculosis screening: No symptoms or risk factors identified. Fall Risk None identified. Assessment: 13:15 General: Appears in no apparent distress. uncomfortable, well developed, Behavior is sv calm, cooperative, appropriate for age. Pain: Denies pain. Neuro: Level of Consciousness is awake, alert, obeys commands, Oriented to person, place, time, situation, Moves all extremities. Full function Gait is steady, Speech is normal. Respiratory: Respiratory effort is even, unlabored, Respiratory pattern is regular, symmetrical. GI: Abdomen is flat, Reports nausea, vomiting. Derm: Skin is pink, warm \T\ dry. Vital Signs: 12:37 BP 133 / 76; Pulse 74; Resp 16; Temp 98.3; Pulse Ox 99% on R/A; Pain 3/10; ch ED Course: 12:22 Patient arrived in ED. as 12:23 Cliff Garcia MD is Private Physician. as 12:27 Ronaldo Burden PA is PHCP. cp 12:27 Jimmie Coleman MD is Attending Physician. cp 12:36 Triage completed. ch 12:37 Arm band placed on left wrist. Patient placed in an exam room, on a stretcher. ch 12:46 Shanti Bae RN is Primary Nurse. sv 12:58 Urine collected: clean catch specimen, cloudy, chad colored. [email or web address] 13:15 Patient has correct armband on for positive identification. Bed in low position. Door sv closed. Warm blanket given. Head of bed elevated. 13:55 No provider procedures requiring assistance completed. Patient did not have IV access sv during this emergency room visit. Administered Medications: 13:18 Drug: Zofran 4 mg Route: PO; sv 13:59 Follow up: Response: No adverse reaction; Marked relief of symptoms sv Outcome: 13:48 Discharge ordered by MD. cp 13:55 Discharged to home ambulatory. sv 13:55 Condition: stable 13:55 Condition: improved 13:55 Discharge instructions given to patient, Instructed on discharge instructions, follow up and referral plans. medication usage, Demonstrated understanding of instructions, follow-up care, medications, Prescriptions given X 1. 13:59 Patient left the ED. sv Signatures: Jamari Sandhu [email or web address] Annamaria Pleitez RN RN Shanti Bae RN RN Marge Squires as Page, Ronaldo, PA PA cp
[2018-02-10 14:29] LABS: Urine Blood 1+ (NEG); Urine Glucose NEGATIVE (NEG); Urine Protein TRACE (NEG); Urine Specific Gravity 1.025 (1.005-1.030)
[2018-02-10 15:33] VITALS: BP 133/76; TEMP 98.3; O2SAT 99
== END 2018-02-10 13:59 | disposition home or self-care (01) ==
LOC: ER 12:20
DX: N39.0 Urinary tract infection, site not specified (principal); Z88.1 Allergy status to other antibiotic agents
CPT/HCPCS: 81003; 81015; 81025; 87086; 87088; 99283

== ENCOUNTER 2019-07-19 06:10 | Emergency (ER) | payer BC ==
[2019-07-19] MEDS ORDERED: NA CHLORIDE 0.9% 1,000 ML ONE (06:46)
[2019-07-19] MEDS ORDERED: KETOROLAC 30 MG/ML INJ ONE (06:46)
[2019-07-19 06:55] LABS: Absolute Lymphocytes (CBC) 2.1 K/uL (0.7-4.9); Basophils % 0.2 % (0-1.3); Hematocrit 39.5 % (36.0-45.0); Lymphocytes % 19.1 % (15.3-44.8); MPV 8.8 fL (7.6-11.3); RBC Red Blood Cell Count 4.12 M/uL (3.86-4.86)
[2019-07-19 07:26] LABS: Bilirubin Direct 0.2 mg/dL (0-0.2); Bilirubin Total 0.3 mg/dL (0.2-1.0); Potassium 3.5 mmol/L (3.5-5.1); Protein, Total 7.6 g/dL (6.4-8.2)
--- NOTE | 2019-07-19 08:06 | RAD REPORT ---
EXAM DESCRIPTION: US - Abdomen Exam Limited - 07/19/2019 6:56 am CLINICAL HISTORY: Abdominal pain. COMPARISON: None. FINDINGS: Multiple gallstones. Gallbladder is contracted. The evaluation of the gallbladder wall is limited but does appear to be mildly thickened. The common bile duct is dilated measuring 8 millimeters. Echogenic structure is present within the du ct suspicious for a stone IMPRESSION: Cholelithiasis. Mild gallbladder wall thickening may indicate cholecystitis A stone is suspected within a mildly dilated common bile duct
[2019-07-19] MEDS ORDERED: CEFOXITIN/SWI 1gm 1 GM/10 ML SYR IV ONE (08:30)
--- NOTE | 2019-07-19 08:51 | ER ---
Nurse's Notes [facility] Name: Sosa Kraus Age: 33 yrs Sex: Female : 1985 Arrival Date: 07/19/2019 Time: 06:11 Bed 19 Private MD: Diagnosis: Cholelithiasis;Biliary acute pancreatitis;Common bile duct stone;Urinary tract infection, site not specified Presentation: 07/18 06:25 Chief complaint: Patient states: " I had severe abdominal pain, I think it is my jv1 gallbladder". Coronavirus screen: Patient denies fever greater than 100.4F, cough, shortness of breath, or difficulty breathing. Proceed with normal triage process. Ebola Screen: Patient negative for fever greater than or equal to 101.5 degrees Fahrenheit, and additional compatible Ebola Virus Disease symptoms No symptoms or risks identified at this time. Initial Sepsis Screen: Does the patient meet any 2 criteria? No. Patient's initial sepsis screen is negative. Does the patient have a suspected source of infection? No. Patient's initial sepsis screen is negative. Risk Assessment: Do you want to hurt yourself or someone else? Patient reports no desire to harm self or others. 06:25 Method Of Arrival: Ambulatory jv1 06:25 Acuity: DOMINGO 3 jv1 06:38 Onset of symptoms was July 19, 2019 at 04:20. jv1 Triage Assessment: 06:28 General: Appears in no apparent distress. uncomfortable, Behavior is calm, cooperative, jv1 appropriate for age. Pain: Complains of pain in Right upper quadrant of the abdomen Pain radiates to back Pain currently is 9 out of 10 on a pain scale. Quality of pain is described as aching, Pain began 2 hours ago. EENT: No signs and/or symptoms were reported regarding the EENT system. Neuro: Level of Consciousness is awake, alert, obeys commands, Oriented to person, place, time, situation. Cardiovascular: Denies chest pain. Respiratory: Airway is patent Respiratory effort is even, unlabored, Respiratory pattern is regular, symmetrical. GI: Reports upper abdominal pain, Patient currently denies nausea, vomiting. : No signs and/or symptoms were reported regarding the genitourinary system. Derm: Skin is intact, is healthy with good turgor. Musculoskeletal: No signs and/or symptoms reported regarding the musculoskeletal system. 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 - Social history:: Smoking status: Patient denies any tobacco usage or history of. Screenin:38 Abuse screen: Denies threats or abuse. Nutritional screening: No deficits noted. jv1 Tuberculosis screening: No symptoms or risk factors identified. Fall Risk None identified. Assessment: 06:35 General: Appears in no apparent distress. uncomfortable, well groomed, Behavior is jv1 calm, cooperative, appropriate for age. Pain: Complains of pain in right upper quadrant of the abdomen Pain radiates to back Pain currently is 9 out of 10 on a pain scale. Quality of pain is described as aching, Pain began 2 hours ago. Neuro: Level of Consciousness is awake, alert, obeys commands, Oriented to person, place, time, situation. Cardiovascular: Denies chest pain. Respiratory: Airway is patent Respiratory effort is even, unlabored, Respiratory pattern is regular, symmetrical, Breath sounds are clear bilaterally. GI: Abdomen is round non-distended, Bowel sounds present X 4 quads. Abd is soft Abdomen is tender to palpation in right upper quadrant Reports upper abdominal pain, Patient currently denies nausea, vomiting. : No signs and/or symptoms were reported regarding the genitourinary system. EENT: No signs and/or symptoms were reported regarding the EENT system. Derm: No signs and/or symptoms reported regarding the dermatologic system. Musculoskeletal: Circulation, motion, and sensation intact. Capillary refill < 3 seconds. 07:25 Reassessment: Report received from SULMA Trejo. aa5 07:30 Reassessment: Patient is alert, oriented x 3, equal unlabored respirations, skin aa5 warm/dry/pink. Pt sitting up in bed, states feeling better, currently denies pain, denies nausea/vomiting. Notified of wait time for US results. . 08:30 Reassessment: Patient is alert, oriented x 3, equal unlabored respirations, skin aa5 warm/dry/pink. Patient denies pain at this time. Awaiting disposition, pt notified of wait time. . 09:58 Reassessment: Patient is alert, oriented x 3, equal unlabored respirations, skin aa5 warm/dry/pink. Pain: Pain currently is 5 out of 10 on a pain scale. Vital Signs: 06:25 BP 134 / 70; Pulse 91; Resp 18; Temp 97.8; Pulse Ox 100% on R/A; Pain 9/10; jv1 06:35 BP 134 / 70; Pulse 91; Resp 18; Temp 97.8; Pulse Ox 100% ; Pain 9/10; jv1 08:30 BP 112 / 67; Pulse 73; Resp 16 S; Pulse Ox 99% on R/A; aa5 10:00 BP 116 / 72; Pulse 87; Resp 16 S; Pulse Ox 100% on R/A; aa5 ED Course: 06:11 Patient arrived in ED. ds1 06:19 Nona Angiuano FNP-C is [facility]. snw 06:19 Antony Vanegas MD is Attending Physician. snw 06:28 Triage completed. jv1 06:38 Arm band placed on right wrist. jv1 06:38 Patient has correct armband on for positive identification. Bed in low position. Call jv1 light in reach. Side rails up X 1. 06:40 Inserted saline lock: 20 gauge in right forearm, using aseptic technique. Blood rr5 collected. 06:42 Pulse ox on. NIBP on. rr5 06:56 US Abdomen Limited In Process Unspecified. EDMS 07:24 Gosia Bowie, RN is Primary Nurse. aa5 09:02 Urine collected: Urine micro sent to lab. aa5 10:15 No provider procedures requiring assistance completed. Patient transferred, IV remains aa5 in place. Administered Medications: 06:49 Drug: NS 0.9% 1000 ml Route: IV; Rate: 125 ml/hr; Site: right antecubital; jv1 07:30 Follow up: IV Status: Infusion continued aa5 06:49 Drug: TORadol - Ketorolac 15 mg Route: IVP; Site: right antecubital; jv1 07:30 Follow up: Response: No adverse reaction; Pain is decreased aa5 08:28 Drug: Mefoxin 1 grams {Note: administered slow IVP per pharmacy at this time. .} Route: aa5 IVPB; Infused Over: 30 mins; Site: right forearm; 10:00 Drug: Ativan 1 mg Route: IVP; Site: right forearm; aa5 10:01 Drug: fentaNYL (PF) 25 mcg Route: IVP; Site: right forearm; aa5 Outcome: 08:50 ER care complete, transfer ordered by MD. webster 10:15 Patient left the ED. aa5 10:15 Transferred by ground EMS to [facility], Transfer form completed. aa5 X-rays sent w/ patient. Note: Report given to [facility] 10:15 Condition: stable aa 10:15 Instructed on the need for transfer. Signatures: Dispatcher [employer] EDMS Nona Anguiano, EN[employer] LOCAL TANKER TRUCK DRIVER-[place] Kern ds1 Gosia Bowie RN RN aa5 Maya Parra RN RN jv1 Ayden Hays RN RN rr5 Corrections: (The following items were deleted from the chart) 10:35 10:25 Patient left the ED. aa5 aa5
--- NOTE | 2019-07-19 08:52 | EDPHYS ---
Physician Documentation [facility] Name: Sosa Kraus Age: 33 yrs Sex: Female : 1985 Arrival Date: 07/19/2019 Time: 06:11 Bed 19 Private MD: ED Physician Antony Vanegas HPI: 07/18 06:45 This 33 yrs old Female presents to ER via Ambulatory with complaints of Upper snw Abd Pain, Nausea - Chills. 06:45 Onset: The symptoms/episode began/occurred suddenly, this morning. Associated signs and snw symptoms: Pertinent positives: abdominal pain. Modifying factors: The patient symptoms are alleviated by nothing. The patient has not experienced similar symptoms in the past. The patient has not recently seen a physician. hx of christiana, c/s x 2. 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 - Social history:: Smoking status: Patient denies any tobacco usage or history of. ROS: 06:45 Constitutional: Negative for fever, chills, and weight loss, Eyes: Negative for injury, snw pain, redness, and discharge, ENT: Negative for injury, pain, and discharge, Neck: Negative for injury, pain, and swelling, Cardiovascular: Negative for chest pain, palpitations, and edema, Respiratory: Negative for shortness of breath, cough, wheezing, and pleuritic chest pain, Back: Negative for injury and pain, : Negative for injury, bleeding, discharge, and swelling, MS/Extremity: Negative for injury and deformity, Skin: Negative for injury, rash, and discoloration, Neuro: Negative for headache, weakness, numbness, tingling, and seizure. 06:45 Abdomen/GI: Positive for abdominal pain, nausea, of the right upper quadrant. Exam: 06:43 Constitutional: This is a well developed, well nourished patient who is awake, alert, snw and in no acute distress. Head/Face: Normocephalic, atraumatic. Eyes: Pupils equal round and reactive to light, extra-ocular motions intact. Lids and lashes normal. Conjunctiva and sclera are non-icteric and not injected. Cornea within normal limits. Periorbital areas with no swelling, redness, or edema. ENT: Nares patent. No nasal discharge, no septal abnormalities noted. Tympanic membranes are normal and external auditory canals are clear. Oropharynx with no redness, swelling, or masses, exudates, or evidence of obstruction, uvula midline. Mucous membranes moist. Neck: Trachea midline, no thyromegaly or masses palpated, and no cervical lymphadenopathy. Supple, full range of motion without nuchal rigidity, or vertebral point tenderness. No Meningismus. Chest/axilla: Normal chest wall appearance and motion. Nontender with no deformity. No lesions are appreciated. Cardiovascular: Regular rate and rhythm with a normal S1 and S2. No gallops, murmurs, or rubs. Normal PMI, no JVD. No pulse deficits. Respiratory: Lungs have equal breath sounds bilaterally, clear to auscultation and percussion. No rales, rhonchi or wheezes noted. No increased work of breathing, no retractions or nasal flaring. Back: No spinal tenderness. No costovertebral tenderness. Full range of motion. Skin: Warm, dry with normal turgor. Normal color with no rashes, no lesions, and no evidence of cellulitis. MS/ Extremity: Pulses equal, no cyanosis. Neurovascular intact. Full, normal range of motion. Neuro: Awake and alert, GCS 15, oriented to person, place, time, and situation. Cranial nerves II-XII grossly intact. Motor strength 5/5 in all extremities. Sensory grossly intact. Cerebellar exam normal. Normal gait. 06:43 Abdomen/GI: Inspection: abdomen appears normal, Bowel sounds: normal, Palpation: moderate abdominal tenderness, in the right upper quadrant, Indicators: Bee's sign is positive. Vital Signs: 06:25 BP 134 / 70; Pulse 91; Resp 18; Temp 97.8; Pulse Ox 100% on R/A; Pain 9/10; jv1 06:35 BP 134 / 70; Pulse 91; Resp 18; Temp 97.8; Pulse Ox 100% ; Pain 9/10; jv1 08:30 BP 112 / 67; Pulse 73; Resp 16 S; Pulse Ox 99% on R/A; aa5 10:00 BP 116 / 72; Pulse 87; Resp 16 S; Pulse Ox 100% on R/A; aa5 MDM: 06:20 Patient medically screened. snw 08:46 Data reviewed: vital signs, nurses notes. Data interpreted: Pulse oximetry: on room air snw is 100 %. Interpretation: normal. Counseling: I had a detailed discussion with the patient and/or guardian regarding: the historical points, exam findings, and any diagnostic results supporting the discharge/admit diagnosis, lab results, radiology results, the need to transfer to another facility, [facility] does not immediately have the required specialist. Response to treatment: the patient's symptoms have markedly improved after treatment. 08:47 Physician consultation: Dr. Martinez was called at 08:30, was contacted at 08:30, snw regarding consult, Kindly accepts consult on this pt. 08:47 Physician consultation: Dr. Gentile was called at 08:48, was contacted at 08:48, snw regarding regarding transfer, to [facility]. Dr. Gentile kindly accepts pt in transfer to [facility]. 07/18 06:34 Order name: Basic Metabolic Panel; Complete Time: 07:27 snw 07/18 06:34 Order name: CBC with Diff; Complete Time: 07:01 snw 07/18 06:34 Order name: Creatinine for Radiology; Complete Time: 07:27 snw 07/18 06:34 Order name: Hepatic Function; Complete Time: 07:27 snw 07/18 06:34 Order name: Lipase; Complete Time: 07:27 snw 07/18 08:41 Order name: Urine Microscopic Only; Complete Time: 09:35 snw 07/18 06:34 Order name: US Abdomen Limited; Complete Time: 08:08 snw 07/18 09:11 Order name: Urine Dipstick--Ancillary (enter results) bd 07/18 09:11 Order name: Urine --Ancillary (enter results) bd 07/18 09:29 Order name: Urine Culture EDMS 07/18 06:34 Order name: IV Saline Lock; Complete Time: 06:39 snw 07/18 06:34 Order name: Labs collected and sent; Complete Time: 06:42 snw 07/18 08:41 Order name: Urine Test (obtain specimen); Complete Time: 09:09 snw 07/18 08:41 Order name: Urine Dipstick-Ancillary (obtain specimen); Complete Time: 09:09 snw Administered Medications: 06:49 Drug: NS 0.9% 1000 ml Route: IV; Rate: 125 ml/hr; Site: right antecubital; jv1 07:30 Follow up: IV Status: Infusion continued aa5 06:49 Drug: TORadol - Ketorolac 15 mg Route: IVP; Site: right antecubital; jv1 07:30 Follow up: Response: No adverse reaction; Pain is decreased aa5 08:28 Drug: Mefoxin 1 grams {Note: administered slow IVP per pharmacy at this time. .} Route: aa5 IVPB; Infused Over: 30 mins; Site: right forearm; 10:00 Drug: Ativan 1 mg Route: IVP; Site: right forearm; aa5 10:01 Drug: fentaNYL (PF) 25 mcg Route: IVP; Site: right forearm; aa5 Disposition: 19:07 Co-signature as Attending Physician, Antony Vanegas MD. pkl Disposition: 07/19/19 08:50 Transfer ordered to [facility]. Diagnosis are Cholelithiasis, Biliary acute pancreatitis, Common bile duct stone, Urinary tract infection, site not specified. - Reason for transfer: Specialty. - Accepting physician is Dr. Gentile. - Condition is Stable. - Problem is new. - Symptoms have improved. Signatures: Dispatcher [employer] EDMS Antony Vanegas MD MD pkl Nona Anguiano FNP-C [employer]ILE QA TESTER-[place] Gosia Bowie, RN RN aa5 Maya Parra RN RN jv1 Corrections: (The following items were deleted from the chart) 09:35 08:50 07/19/2019 08:50 Transfer ordered to [facility]. snw Diagnosis is Cholelithiasis; Biliary acute pancreatitis; Common bile duct stone. Reason for transfer: Specialty. Accepting physician is Dr. Gentile. Condition is Stable. Problem is new. Symptoms have improved. snw 10:25 09:35 07/19/2019 08:50 Transfer ordered to [facility]. aa5 Diagnosis is Cholelithiasis; Biliary acute pancreatitis; Common bile duct stone; Urinary tract infection, site not specified. Reason for transfer: Specialty. Accepting physician is Dr. Gentile. Condition is Stable. Problem is new. Symptoms have improved. snw
[2019-07-19 09:27] LABS: Urine Bacteria >50 /HPF (<20); Urine Culture Reflex Order REFLEXED; Urine Mucus MOD /HPF (NONE SEEN)
[2019-07-19] MEDS ORDERED: LORazepam 2 MG/ML VIAL ONE (10:01)
[2019-07-19] MEDS ORDERED: FENTANYL CITR 100 MCG/2 ML ONE (10:02)
[2019-07-19 10:30] VITALS: BP 134/70; TEMP 97.8; O2SAT 100
[2019-07-19 11:15] LABS: Urine Blood TRACE (NEG); Urine Glucose NEGATIVE (NEG); Urine Protein NEGATIVE (NEG)
== END 2019-07-19 10:25 | disposition short-term general hospital (02) ==
LOC: ER 06:10
DX: K80.20 Calculus of gallbladder without cholecystitis without obstruction (principal); K85.10 Biliary acute pancreatitis without necrosis or infection; K80.50 Calculus of bile duct without cholangitis or cholecystitis without obstruction; N39.0 Urinary tract infection, site not specified; Z88.1 Allergy status to other antibiotic agents
CPT/HCPCS: 96361; 87088; 85025; 87086; 80048; 36415; 81025; 80076; 83690; 76705; 96375; 96374; 99285; J3010; J7030; 81003; 81015

== ENCOUNTER 2021-03-13 13:22 | Emergency (ER) | payer BC, OTHER ==
--- OUTSIDE RECORDS SUMMARY | 2021-03-13 13:25 | XMS REPORT | Continuity of Care Document ---
:1985 Author Organization [facility] t Address [address] [place] [address] Care Team Providers Name Role Phone Pcp, Does Not Have A Primary Care Physician Julianne PETERSEN Attending Clinician Unavailable Julianne Petersen MD Attending Clinician SEVERO JACKSON Attending Clinician Unavailable JIMI Admitting Clinician Unavailable Payers Payer Name Policy Type Policy Number Effective Date Expiration Date S ource Problems Condition Condition Condition Status Onset Resolution Last Treating Co mments Source Name Details Category Date Date Treatment Clinician Date Morbid Morbid Disease Active Univers obesity obesity 01-18 [place] index 00 [place] dical of of Branch 40.0-49.9 40.0-49.9 Allergies, Adverse Reactions, Alerts Allergy Allergy Status Severity Reaction(s) Onset Inactive Treating Comm ents Source Name Type Date Date Clinician Amoxicil Propensi Active Swelling Univ ers richy-Pot ty to 01-18 ity of Clavulan adverse 00:00: [place] ate reaction 00 Medical s Branch AMOXICIL DRUG Active Hives Univers RICHY-POT 9 ity of CLAVULAN 00:00: [place] ATE 00 Medical Branch AMOXICIL Allergy Active High Diarrhea [facility] 00:00: Medical ATE 00 Center NO KNOWN Drug Active Univers ALLERGIE Class ity of S [facility] Social History Social Habit Start Date Stop Date Quantity Comments Source Exposure to Not sure University of SARS-CoV-2 [place] [facility] (event) Branch History SDOH University o f Alcohol Frequency [place] M edical Branch History SDLA University o f Alcohol Std [place] [facility] Drinks Branch History SDLA University o f Alcohol Binge [place] [facility] Tobacco use and 2021-01-18 2021-01-18 Never used Universit y of exposure 00:00:00 00:00:00 [facility] Alcohol intake 2021-01-18 2021-01-18 Current drinker Unive rsity of 00:00:00 00:00:00 of alcohol [facility] (finding) [place] Alcohol Comment 2021-01-18 2021-01-18 social Universit y of 00:00:00 00:00:00 [facility] Sex Ass[birth year] At [birth year] Universit y of 00:00:00 00:00:00 [facility] Smoking Status Start Date Stop Date Source Never smoker [facility] Medications Ordered Filled Start Stop Current Ordering Indication Dosage Frequency Signature Comments Components Source Medication Medication Date Date Medication? Clinician (SIG) Name Name norgestimat 2020- No 1{tbl} Take 1 U nivers e-ethinyl 9-23 01-18 tablet by ity of estradioL 15:21: 00:00 mouth [place] (ESTARYLLA) 03 :00 daily. Medica l 0.25-35 Branch mg-mcg per tablet phentermine Yes 37.5mg Take 37.5 Univers 37.5 mg 9-23 mg by ity of capsule 15:03: mouth [place] 53 every Medical morning. Branch norgestimat Yes [id number] 1{tbl} Take 1 Univers e-ethinyl 9-23 tablet by ity o f estradioL 00:00: mouth [place] (ESTARYLLA) 00 daily. Medica l 0.25-35 Branch mg-mcg per tablet SERTraline Yes 25mg Take 25 mg U nivers 25 mg 8-18 by mouth ity of tablet 00:00: daily. [address] Immunizations Ordered Filled Immunization Date Status Comments Sourc e Immunization Name Name SARS-COV-2 COVID-19 2020 Completed Unive rsity of PFIZER VACCINE 00:00:00 [facility] SARS-COV-2 COVID-19 2020-07-15 Completed Unive rsity of PFIZER VACCINE 00:00:00 [facility] Vital Signs Vital Name Observation Time Observation Value Comments Source Systolic blood 2021-01-18 19:58:00 117 mm[Hg] Univer sity of pressure [facility] Diastolic blood 2021-01-18 19:58:00 76 mm[Hg] Unive rsity of [facility] Heart rate 2021-01-18 19:58:00 79 /min [facility] Body temperature 2021-01-18 19:50:00 37 Lisa [facility] Respiratory rate 2021-01-18 19:50:00 18 /min [facility] Body height 2021-01-18 19:50:00 167.6 cm [facility] Body weight 2021-01-18 19:50:00 124.739 kg [facility] BMI 2021-01-18 19:50:00 44.39 kg/m2 [facility] Procedures Procedure Date / Time Performed Performing Clinician Antonietta mcgill POCT TEST 2021-01-18 00:00:00 Dori Petersen [facility] Encounters Start End Encounter Admission Attending Care Care Encounter Source Date/Time Date/Time Type Type Clinicians Facility Department ID 2019-07-19 Inpatient [facility] [id number] [facility] 11:26:18 [id number] 2022-01-30 2022-01-30 [id number] Univers 15:30:00 15:30:00 [facility] [id number] [facility] 2021-01-18 2021-01-18 [facility] [id number] Univers 14:24:24 15:34:15 Visit Dori Cabrera [id number] itvitor [facility] [id number] Cecy Blanchard [id number] Ms dical [address] 2021-01-18 2021-01-18 [facility] [id number] Univers 14:30:00 14:30:00 [facility] Results Test Description Test Time Test Comments Results Result Comments Source POCT TEST 2021-01-18 21:00:00 Test Item Value Reference Range Interpretation Comme nts POCT PREG (test code = 1605) Negative On board controls acceptable with C Line (test code = 3574) Yes POCT PREG LOT # (test code = 3575) POCT PREG TEST DATE (test code = 3576) Lab Interpretation (test code = 11426-6) Normal [facility] [id number] 11:35:00Surgical Pathology Report Case: [id number] Authorizing Provider: Ashwini Amato MD Collected: 07/20/2019 02:34 PM Ordering Location: [facility] PERI[facility] Received: 07/20/2019 03:20 PM SERVICES Pathologist: Frances Morris MD Specimen: Gallbladder A. GALLBLADDER, CHOLECYSTECTOMY: - ACUTE AND CHRONIC CHOLECYSTITIS WITH CHOLELITHIASIS - ACUTE INFLAMMATION FOCALLY EXTENDS TO THE CYSTIC DUCT MARGIN - NEGATIVE FOR DYSPLASIA OR MALIGNANCY Signing Pathologist Direct Phone Line: [phone] signed by Frances Morris MD on 07/21/2019 at 11:35 [id number] pancreatitis, biliary calculus of other site without obstruction.Gallbladder Received in formalin labeled with the patient's name, accession number and "gallbladder" is a 9.5 x 2.0 x 1.5 cm previously opened gallbladder with a 1.2 cm linear staple line at the proximal margin. The serosa is purple-pink, smooth to focally disrupted and hyperemic. The specimen is further opened to revealapproximately 2 mL of hemorrhagic bile and a 3.7 x 3.4 x 1.3 cm aggregate of yellow-green multifaceted calculi. There are calculi lodged within the neck. The mucosa is red-pink and trabeculated. The wall measures 0.2 cm thick. Pipeline Inspector sections are submitted as follows in A1-A2, with the inked proximal margin in A1. PA/ew Performed.COMPREHENSIVE METABOLIC [id number] 05:50:00 Test Item Value Reference Range Interpretation Comments TOTAL PROTEIN 6.3 gm/dL 6.0-8.3 (BEAKER) (test code = 770) ALBUMIN (BEAKER) 3.1 g/dL 3.5-5.0 L (test code = 1145) ALKALINE PHOSPHATASE 103 U/L 40-150 (BEAKER) (test code = 346) BILIRUBIN TOTAL 0.4 mg/dL 0.2-1.2 (BEAKER) (test code = 377) SODIUM (BEAKER) (test 139 meq/L 136-145 code = 381) POTASSIUM (BEAKER) 4.2 meq/L 3.5-5.1 (test code = 379) CHLORIDE (BEAKER) 108 meq/L 98-107 H (test code = 382) CO2 (BEAKER) (test 24 meq/L 22-29 code = 355) BLOOD UREA NITROGEN 7 mg/dL 7-21 (BEAKER) (test code = 354) CREATININE (BEAKER) 0.71 mg/dL 0.57-1.25 (test code = 358) GLUCOSE RANDOM 104 mg/dL 70-105 (BEAKER) (test code = 652) CALCIUM (BEAKER) 8.5 mg/dL 8.4-10.2 (test code = 697) AST (SGOT) (BEAKER) 19 U/L 5-34 (test code = 353) ALT (SGPT) (BEAKER) 44 U/L 6-55 (test code = 347) EGFR (BEAKER) (test 116 ESTIMATE D GFR IS code = 1092) mL/min/1.73 sq NOT ACCURA TE m CREATININE CLEARANCE IN PREDICTING GLOMERULAR FILTRATION RATE . ESTIMATED GFR I S NOT APPLICABLE FOR DIALYSIS PATIEN TS. Physician Office Nurse DAVID CHICASILIRUBIN, [id number] 05:50:00 Test Item Value Reference Range Interpretation Comments BILIRUBIN DIRECT (BEAKER) (test 0.3 mg/dL 0.1-0.5 code = 706) Physician Office Nurse ID Cahcorro DARDEN [facility] W/PLT COUNT & AUTO [id number] 05:26:00 Test Item Value Reference Range Interpretation Comments WHITE BLOOD CELL COUNT (BEAKER) 9.5 K/ L 3.5-10.5 (test code = 775) RED BLOOD CELL COUNT (BEAKER) 3.49 M/ L 3.93-5.22 L (test code = 761) HEMOGLOBIN (BEAKER) (test code = 11.3 GM/DL 11.2-15.7 410) HEMATOCRIT (BEAKER) (test code = 33.9 % 34.1-44.9 L 411) MEAN CORPUSCULAR VOLUME (BEAKER) 97.1 fL 79.4-94.8 H (test code = 753) MEAN CORPUSCULAR HEMOGLOBIN 32.4 pg 25.6-32.2 H (BEAKER) (test code = 751) MEAN CORPUSCULAR HEMOGLOBIN CONC 33.3 GM/DL 32.2-35.5 (BEAKER) (test code = 752) RED CELL DISTRIBUTION WIDTH 12.8 % 11.7-14.4 (BEAKER) (test code = 412) PLATELET COUNT (BEAKER) (test 182 K/CU MM 150-450 code = 756) MEAN PLATELET VOLUME (BEAKER) 10.5 fL 9.4-12.3 (test code = 754) NUCLEATED RED BLOOD CELLS 0 /100 WBC 0-0 (BEAKER) (test code = 413) NEUTROPHILS RELATIVE PERCENT 71 % (BEAKER) (test code = 429) LYMPHOCYTES RELATIVE PERCENT 24 % (BEAKER) (test code = 430) MONOCYTES RELATIVE PERCENT 5 % (BEAKER) (test code = 431) EOSINOPHILS RELATIVE PERCENT 0 % (BEAKER) (test code = 432) BASOPHILS RELATIVE PERCENT 0 % (BEAKER) (test code = 437) NEUTROPHILS ABSOLUTE COUNT 6.73 K/ L 1.56-6.13 H (BEAKER) (test code = 670) LYMPHOCYTES ABSOLUTE COUNT 2.22 K/ L 1.18-3.74 (BEAKER) (test code = 414) MONOCYTES ABSOLUTE COUNT (BEAKER) 0.47 K/ L 0.24-0.36 H (test code = 415) EOSINOPHILS ABSOLUTE COUNT 0.00 K/ L 0.04-0.36 L (BEAKER) (test code = 416) BASOPHILS ABSOLUTE COUNT (BEAKER) 0.01 K/ L 0.01-0.08 (test code = 417) IMMATURE GRANULOCYTES-RELATIVE 0 % 0-1 PERCENT (BEAKER) (test code = 2801) [id number] 09:59:00 Test Item Value Reference Range Interpretation Comments LIPASE (BEAKER) (test code = 749) 274 U/L 8-78 H Physician Office Nurse ID - EMERSONPREGNANCY SCREEN, [id number] 08:06:00 Test Item Value Reference Range Interpretation Comments TEST URINE (BEAKER) (test Negative code = 583) [id number] 05:59:00 Test Item Value Reference Range Interpretation Comments MAGNESIUM (BEAKER) (test code = 1.7 mg/dL 1.6-2.6 627) Physician Office Nurse ID - KATALINA MCOMPREHENSIVE METABOLIC [id number] 05:59:00 Test Item Value Reference Range Interpretation Comments TOTAL PROTEIN 6.1 gm/dL 6.0-8.3 (BEAKER) (test code = 770) ALBUMIN (BEAKER) 3.0 g/dL 3.5-5.0 L (test code = 1145) ALKALINE PHOSPHATASE 102 U/L 40-150 (BEAKER) (test code = 346) BILIRUBIN TOTAL 0.4 mg/dL 0.2-1.2 (BEAKER) (test code = 377) SODIUM (BEAKER) (test 139 meq/L 136-145 code = 381) POTASSIUM (BEAKER) 3.8 meq/L 3.5-5.1 (test code = 379) CHLORIDE (BEAKER) 109 meq/L 98-107 H (test code = 382) CO2 (BEAKER) (test 25 meq/L 22-29 code = 355) BLOOD UREA NITROGEN 7 mg/dL 7-21 (BEAKER) (test code = 354) CREATININE (BEAKER) 0.72 mg/dL 0.57-1.25 (test code = 358) GLUCOSE RANDOM 90 mg/dL 70-105 (BEAKER) (test code = 652) CALCIUM (BEAKER) 8.3 mg/dL 8.4-10.2 L (test code = 697) AST (SGOT) (BEAKER) 24 U/L 5-34 (test code = 353) ALT (SGPT) (BEAKER) 53 U/L 6-55 (test code = 347) EGFR (BEAKER) (test 115 ESTIMATE D GFR IS code = 1092) mL/min/1.73 sq NOT ACCURA TE m CREATININE CLEARANCE IN PREDICTING GLOMERULAR FILTRATION RATE . ESTIMATED GFR I S NOT APPLICABLE FOR DIALYSIS PATIEN TS. Physician Office Nurse ID - KATALINA [facility] W/PLT COUNT & AUTO [id number] 05:36:00 Test Item Value Reference Range Interpretation Comments WHITE BLOOD CELL COUNT (BEAKER) 6.5 K/ L 3.5-10.5 (test code = 775) RED BLOOD CELL COUNT (BEAKER) 3.40 M/ L 3.93-5.22 L (test code = 761) HEMOGLOBIN (BEAKER) (test code = 10.7 GM/DL 11.2-15.7 L 410) HEMATOCRIT (BEAKER) (test code = 33.1 % 34.1-44.9 L 411) MEAN CORPUSCULAR VOLUME (BEAKER) 97.4 fL 79.4-94.8 H (test code = 753) MEAN CORPUSCULAR HEMOGLOBIN 31.5 pg 25.6-32.2 (BEAKER) (test code = 751) MEAN CORPUSCULAR HEMOGLOBIN CONC 32.3 GM/DL 32.2-35.5 (BEAKER) (test code = 752) RED CELL DISTRIBUTION WIDTH 13.2 % 11.7-14.4 (BEAKER) (test code = 412) PLATELET COUNT (BEAKER) (test 174 K/CU MM 150-450 code = 756) MEAN PLATELET VOLUME (BEAKER) 10.2 fL 9.4-12.3 (test code = 754) NUCLEATED RED BLOOD CELLS 0 /100 WBC 0-0 (BEAKER) (test code = 413) NEUTROPHILS RELATIVE PERCENT 46 % (BEAKER) (test code = 429) LYMPHOCYTES RELATIVE PERCENT 46 % (BEAKER) (test code = 430) MONOCYTES RELATIVE PERCENT 6 % (BEAKER) (test code = 431) EOSINOPHILS RELATIVE PERCENT 2 % (BEAKER) (test code = 432) BASOPHILS RELATIVE PERCENT 0 % (BEAKER) (test code = 437) NEUTROPHILS ABSOLUTE COUNT 3.03 K/ L 1.56-6.13 (BEAKER) (test code = 670) LYMPHOCYTES ABSOLUTE COUNT 2.98 K/ L 1.18-3.74 (BEAKER) (test code = 414) MONOCYTES ABSOLUTE COUNT (BEAKER) 0.37 K/ L 0.24-0.36 H (test code = 415) EOSINOPHILS ABSOLUTE COUNT 0.11 K/ L 0.04-0.36 (BEAKER) (test code = 416) BASOPHILS ABSOLUTE COUNT (BEAKER) 0.01 K/ L 0.01-0.08 (test code = 417) IMMATURE GRANULOCYTES-RELATIVE 0 % 0-1 PERCENT (BEAKER) (test code = 2801) [id number] 14:24:00 Test Item Value Reference Range Interpretation Comments MAGNESIUM (BEAKER) 1.7 mg/dL 1.6-2.6 Specimen slightly (test code = 627) hemolyzed Physician Office Nurse ID - [id number] 14:24:00 Test Item Value Reference Range Interpretation Comments PHOSPHORUS (BEAKER) 2.7 mg/dL 2.3-4.7 Specimen slightly (test code = 604) hemolyzed Physician Office Nurse ID - [id number] 14:24:00 Test Item Value Reference Range Interpretation Comments TRIGLYCERIDES (BEAKER) 49 mg/dL Speci men slightly (test code = 540) hemolyzed TRIGLYCERIDE REFERENCE RANGELow Risk <150Borderline Risk 150-199High Risk 200-499Very High Risk>=500Operator ID - EMERSONCOMPREHENSIVE METABOLIC PANEL 2019-07-19 14:24:00 Test Item Value Reference Range Interpretation Comments TOTAL PROTEIN 6.9 gm/dL 6.0-8.3 Specimen sligh tly (BEAKER) (test code = hemoly zed 770) ALBUMIN (BEAKER) 3.3 g/dL 3.5-5.0 L Specimen sl ightly (test code = 1145) hemolyzed ALKALINE PHOSPHATASE 117 U/L 40-150 (BEAKER) (test code = 346) BILIRUBIN TOTAL 0.5 mg/dL 0.2-1.2 Specimen sli ghtly (BEAKER) (test code = hemoly zed 377) SODIUM (BEAKER) (test 138 meq/L 136-145 code = 381) POTASSIUM (BEAKER) 3.6 meq/L 3.5-5.1 Specimen slightly (test code = 379) hemolyzed CHLORIDE (BEAKER) 109 meq/L 98-107 H (test code = 382) CO2 (BEAKER) (test 24 meq/L 22-29 code = 355) BLOOD UREA NITROGEN 10 mg/dL 7-21 (BEAKER) (test code = 354) CREATININE (BEAKER) 0.68 mg/dL 0.57-1.25 Specimen slightly (test code = 358) hemolyzed GLUCOSE RANDOM 96 mg/dL 70-105 (BEAKER) (test code = 652) CALCIUM (BEAKER) 8.3 mg/dL 8.4-10.2 L (test code = 697) AST (SGOT) (BEAKER) 47 U/L 5-34 H Specimen slightly (test code = 353) hemolyzed ALT (SGPT) (BEAKER) 65 U/L 6-55 H Specimen slightly (test code = 347) hemolyzed EGFR (BEAKER) (test 122 ESTIMATE D GFR IS code = 1092) mL/min/1.73 sq NOT ACCURA TE m CREATININE CLEARANCE IN PREDICTING GLOMERULAR FILTRATION RATE . ESTIMATED GFR I S NOT APPLICABLE FOR DIALYSIS PATIEN TS. Physician Office Nurse ID - [id number] 14:24:00 Test Item Value Reference Range Interpretation Comments LIPASE (BEAKER) (test code = 749) 631 U/L 8-78 H Physician Office Nurse ID - EMERSONPROTHROMBIN [id number] 14:17:00 Test Item Value Reference Range Interpretation Comments PROTIME (BEAKER) (test code = 14.0 seconds 11.9-14.2 759) INR (BEAKER) (test code = 370) 1.1 <=5.9 Effective 09/23/2018: PT Reference Range ChangeNew: 11.9-14.2 Previous: 11.7- 14.7RECOMMENDED COUMADIN/WARFARIN INR THERAPY RANGESSTANDARD DOSE: 2.0-3.0 Includes: PROPHYLAXIS for venous thrombosis, systemic embolization; TREATMENT for venous thrombosis and/or pulmonary embolus.HIGH RISK: Target INR is2.5-3.5 for patients wiht mechanical heart valves.CBC W/PLT COUNT & AUTO [id number] 14:07:00 Test Item Value Reference Range Interpretation Comments WHITE BLOOD CELL COUNT (BEAKER) 10.6 K/ L 3.5-10.5 H (test code = 775) RED BLOOD CELL COUNT (BEAKER) 3.66 M/ L 3.93-5.22 L (test code = 761) HEMOGLOBIN (BEAKER) (test code = 11.8 GM/DL 11.2-15.7 410) HEMATOCRIT (BEAKER) (test code = 35.5 % 34.1-44.9 411) MEAN CORPUSCULAR VOLUME (BEAKER) 97.0 fL 79.4-94.8 H (test code = 753) MEAN CORPUSCULAR HEMOGLOBIN 32.2 pg 25.6-32.2 (BEAKER) (test code = 751) MEAN CORPUSCULAR HEMOGLOBIN CONC 33.2 GM/DL 32.2-35.5 (BEAKER) (test code = 752) RED CELL DISTRIBUTION WIDTH 13.0 % 11.7-14.4 (BEAKER) (test code = 412) PLATELET COUNT (BEAKER) (test 184 K/CU MM 150-450 code = 756) MEAN PLATELET VOLUME (BEAKER) 9.9 fL 9.4-12.3 (test code = 754) NUCLEATED RED BLOOD CELLS 0 /100 WBC 0-0 (BEAKER) (test code = 413) NEUTROPHILS RELATIVE PERCENT 69 % (BEAKER) (test code = 429) LYMPHOCYTES RELATIVE PERCENT 26 % (BEAKER) (test code = 430) MONOCYTES RELATIVE PERCENT 5 % (BEAKER) (test code = 431) EOSINOPHILS RELATIVE PERCENT 0 % (BEAKER) (test code = 432) BASOPHILS RELATIVE PERCENT 0 % (BEAKER) (test code = 437) NEUTROPHILS ABSOLUTE COUNT 7.28 K/ L 1.56-6.13 H (BEAKER) (test code = 670) LYMPHOCYTES ABSOLUTE COUNT 2.71 K/ L 1.18-3.74 (BEAKER) (test code = 414) MONOCYTES ABSOLUTE COUNT (BEAKER) 0.52 K/ L 0.24-0.36 H (test code = 415) EOSINOPHILS ABSOLUTE COUNT 0.02 K/ L 0.04-0.36 L (BEAKER) (test code = 416) BASOPHILS ABSOLUTE COUNT (BEAKER) 0.01 K/ L 0.01-0.08 (test code = 417) IMMATURE GRANULOCYTES-RELATIVE 0 % 0-1 PERCENT (BEAKER) (test code = 1304)
[2021-03-13] MEDS ORDERED: HYDROCODONE/APAP 10/325 TAB ONE (14:08)
--- NOTE | 2021-03-13 14:27 | RAD REPORT ---
EXAM DESCRIPTION: RAD - Foot Left 3 View - 03/13/2021 2:05 pm CLINICAL HISTORY: PAIN COMPARISON: Os Calcis (Calcaneus) Heel dated 12/06/2019 FINDINGS: No acute fracture. No malalignment. No significant focal degenerative changes. IMPRESSION: No acute osseous abnormality involving the left foot.
--- NOTE | 2021-03-13 14:27 | RAD REPORT ---
EXAM DESCRIPTION: RAD - Ankle Left 3 View - 03/13/2021 2:05 pm CLINICAL HISTORY: PAIN COMPARISON: No comparisons FINDINGS: No acute fracture. No malalignment. No significant focal degenerative changes. IMPRESSION: No acute osseous abnormality involving the left ankle.
--- NOTE | 2021-03-13 14:31 | ER ---
Nurse's Notes [facility] Name: Sosa Kraus Age: 35 yrs Sex: Female : 1985 Arrival Date: 03/13/2021 Time: 13:26 Bed Treatment Private MD: Diagnosis: Sprain of ankle;Sprain of foot Presentation: 03/13 13:33 Chief complaint: Patient states: L ankle and foot pain since 1230 after slipping on wet ll1 surface at work. Coronavirus screen: Vaccine status: Patient reports receiving the 2nd dose of the covid vaccine. Client denies travel out of the [place] in the last 14 days. At this time, the client does not indicate any symptoms associated with coronavirus-19. Ebola Screen: Patient denies travel to an Ebola-affected area in the 21 days before illness onset. Initial Sepsis Screen: Does the patient meet any 2 criteria? No. Patient's initial sepsis screen is negative. Does the patient have a suspected source of infection? No. Patient's initial sepsis screen is negative. Risk Assessment: Do you want to hurt yourself or someone else? Patient reports no desire to harm self or others. Onset of symptoms was March 13, 2021. 13:33 Method Of Arrival: Wheelchair ll1 13:33 Acuity: DOMINGO 4 ll1 Triage Assessment: 13:40 General: Appears uncomfortable, Behavior is calm, cooperative, appropriate for age. ll1 Pain: Complains of pain in L foot/ankle Pain currently is 10 out of 10 on a pain scale. Quality of pain is described as aching, throbbing, Aggravated by increased activity. Musculoskeletal: Circulation, motion, and sensation intact. Capillary refill < 3 seconds, Reports pain in L ankle/foot. Injury Description: slip and fall. 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 - Social history:: Smoking status: Patient denies any tobacco usage or history of. Screenin:59 Abuse screen: Denies threats or abuse. Nutritional screening: No deficits noted. ll1 Tuberculosis screening: No symptoms or risk factors identified. Fall Risk Fall in past 12 months (25 points). Ambulatory Aid- Crutches/Cane/Walker (15 pts). Gait- Impaired (20 pts.). Total Linton Fall Scale indicates High Risk Score (45 or more points). Fall prevention measures have been instituted. Side Rails Up X 2 Frequent Obs/Assessments Occuring As available patient and family educated on Fall Prevention Program and Strategies. Assessment: 14:58 Reassessment: Patient appears in no apparent distress at this time. No changes from vg1 previously documented assessment. Patient and/or family updated on plan of care and expected duration. Pain level reassessed. Patient is alert, oriented x 3, equal unlabored respirations, skin warm/dry/pink. Vital Signs: 13:33 BP 128 / 89; Pulse 94; Resp 18; Temp 98.4; Pulse Ox 98% ; Weight 117.93 kg; Height 5 ll1 ft. 6 in. (167.64 cm); Pain 10/10; 13:33 Body Mass Index 41.96 (117.93 kg, 167.64 cm) ll1 ED Course: 13:26 Patient arrived in ED. am2 13:34 Triage completed. ll1 13:35 Arm band placed on Patient placed in an exam room, on a stretcher. ll1 13:58 Isauro Olmos, RN is Primary Nurse. ll1 13:59 Patient has correct armband on for positive identification. Bed in low position. Call ll1 light in reach. Side rails up X 1. Cardiac monitoring not applicable on this patient. 14:00 Carlin Kitchen PA is PHCP. jr8 14:00 Jimmie Coleman MD is Attending Physician. jr8 14:05 Ankle Left 3 View XRAY In Process Unspecified. EDMS 14:05 Foot Left 3 View XRAY In Process Unspecified. EDMS 14:59 No provider procedures requiring assistance completed. Patient did not have IV access vg1 during this emergency room visit. Administered Medications: 14:13 Drug: Banks (HYDROcodone-acetaminophen) 10 mg-325 mg 1 tabs {Note: rass 0. Pain 10/10.} ll1 Route: PO; Outcome: 14:30 Discharge ordered by . jr8 14:59 Discharged to home via wheelchair. vg1 14:59 Condition: stable 14:59 Discharge instructions given to patient, Instructed on discharge instructions, follow up and referral plans. medication usage, crutch walking, Demonstrated understanding of instructions, follow-up care, medications, crutch walking, Prescriptions given X 1. 14:59 Patient left the ED. vg1 Signatures: Dispatcher [employer] EDMS Carlin Kitchen PA PA jr8 Linda Flower am2 Gabriela Ward RN RN vg1 Isauro Olmos RN RN ll1
--- NOTE | 2021-03-13 14:31 | EDPHYS ---
Physician Documentation [facility] Name: Sosa Kraus Age: 35 yrs Sex: Female : 1985 Arrival Date: 03/13/2021 Time: 13:26 Bed Treatment Private MD: ED Physician Jimmie Coleman HPI: 03/13 14:32 This 35 yrs old Female presents to ER via Wheelchair with complaints of Ankle jr8 Injury. 14:32 Patient stated that she slipped on baby sputum causing her left foot and ankle to roll jr8 and fall. Denies trauma to head or neck. Denies loss of consciousness. Complains of localized pain to the left foot and ankle since incident with decreased range of motion.. 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 - Social history:: Smoking status: Patient denies any tobacco usage or history of. ROS: 14:32 Cardiovascular: Negative for chest pain, palpitations, and edema, Respiratory: Negative jr8 for shortness of breath, cough, wheezing, and pleuritic chest pain, Skin: Negative for injury, rash, and discoloration, Neuro: Negative for headache, weakness, numbness, tingling, and seizure. 14:32 MS/extremity: Positive for pain, swelling, tenderness, of the Left foot and ankle. 14:32 All other systems are negative. Exam: 14:31 Constitutional: This is a well developed, well nourished patient who is awake, alert, jr8 and in no acute distress. Cardiovascular: Regular rate and rhythm with a normal S1 and S2. No gallops, murmurs, or rubs. Normal PMI, no JVD. No pulse deficits. Respiratory: Lungs have equal breath sounds bilaterally, clear to auscultation and percussion. No rales, rhonchi or wheezes noted. No increased work of breathing, no retractions or nasal flaring. Skin: Warm, dry with normal turgor. Normal color with no rashes, no lesions, and no evidence of cellulitis. Neuro: Awake and alert, GCS 15, oriented to person, place, time, and situation. Cranial nerves II-XII grossly intact. Motor strength 5/5 in all extremities. Sensory grossly intact. 14:31 Musculoskeletal/extremity: Extremities: grossly normal except: Left foot and left ankle. Patient has moderate tenderness to the dorsal left foot extending to the lateral left foot and up to the lateral malleolus. Mild swelling noted. No bruising, abrasions, lacerations, or any other external signs of trauma. Decreased range of motion present secondary to pain. Pulses 2+ both dorsal podalic's and posterior tibial. Normal sensation present. Remainder of extremities unremarkable.. Vital Signs: 13:33 BP 128 / 89; Pulse 94; Resp 18; Temp 98.4; Pulse Ox 98% ; Weight 117.93 kg; Height 5 ll1 ft. 6 in. (167.64 cm); Pain 10/10; 13:33 Body Mass Index 41.96 (117.93 kg, 167.64 cm) ll1 Procedures: 14:30 Splinting: Splint applied to left foot using elmer wrap, applied by nurse. Examined by jr8 me, post splint application: neurovascular intact, 2+ distal pulses palpable, brisk capillary refill noted, Patient tolerated well. Crutch training provided to patient and/or family. Return demonstration given. MDM: 14:00 Patient medically screened. jr8 14:30 Data reviewed: vital signs, nurses notes, radiologic studies, plain films. Data jr8 interpreted: Pulse oximetry: on room air is 98 %. Interpretation: normal. Counseling: I had a detailed discussion with the patient and/or guardian regarding: the historical points, exam findings, and any diagnostic results supporting the discharge/admit diagnosis, radiology results, the need for outpatient follow up, a family practitioner, to return to the emergency department if symptoms worsen or persist or if there are any questions or concerns that arise at home. 03/13 13:38 Order name: Ankle Left 3 View XRAY; Complete Time: 14:30 ll1 03/13 13:38 Order name: Foot Left 3 View XRAY; Complete Time: 14:30 ll1 03/13 14:06 Order name: Elmer Wrap; Complete Time: 14:39 jr8 03/13 14:06 Order name: Crutches; Complete Time: 14:39 jr8 Administered Medications: 14:13 Drug: [facility] (HYDROcodone-acetaminophen) 10 mg-325 mg 1 tabs {Note: rass 0. Pain 02/04.} ll1 Route: PO; Disposition: 16:46 Co-signature as Attending Physician, Jimmie Coleman MD I agree with the assessment and rn plan of care. Attestation: The patient's history, exam findings, diagnostics, and a summary of any interventions or procedures was reviewed in detail with Carlin COHN. Disposition Summary: 03/13/21 14:30 Discharge Ordered Location: Home jr8 Problem: new jr8 Symptoms: have improved jr8 Condition: Stable jr8 Diagnosis - Sprain of ankle jr8 - Sprain of foot jr8 Followup: jr8 - With: Private Physician - When: 1 week - Reason: Recheck today's complaints, Continuance of care, Re-evaluation by your physician Discharge Instructions: - Discharge Summary Sheet jr8 - Ankle Sprain jr8 - Foot Sprain jr8 Forms: - Medication Reconciliation Form jr8 - Work release form jr8 - Thank You Letter jr8 - Antibiotic Education jr8 - Prescription Opioid Use jr8 Prescriptions: - Ibuprofen 800 mg Oral Tablet - take 1 tablet by ORAL route every 12 hours As needed take with food; 20 tablet; jr8 Refills: 0, Product Selection Permitted Signatures: Dispatcher [employer] Jimmie Hopkins MD MD rn Roszak, Josh, PA PA jr8 Isauro Olmos, RN RN ll1
[2021-03-13 15:35] VITALS: BP 128/89; TEMP 98.4; O2SAT 98
== END 2021-03-13 14:59 | disposition home or self-care (01) ==
LOC: ER 13:22
DX: S93.402A Sprain of unspecified ligament of left ankle, initial encounter (principal); S93.602A Unspecified sprain of left foot, initial encounter; W01.0XXA Fall on same level from slipping, tripping and stumbling without subsequent striking against object, initial encounter; Y93.01 Activity, walking, marching and hiking; Z88.1 Allergy status to other antibiotic agents
CPT/HCPCS: 99284